=== PATIENT | female | born 1965 | race Caucasian/White ===

== ENCOUNTER 2020-11-12 09:15 | Outpatient (CLI) | payer OTHER, SELFPAY ==
--- NOTE | ~2020-11-12 | XR_ITS ---
EXAMINATION:XR_CERV2-3V_CR, XR lumbar spine 2-3V, XR thoracic spine 2V DATE: 11/12/2020 10:01 INDICATION: Scoliosis with chronic spine pain. TECHNIQUE: 1. AP, lateral, lateral swimmers and odontoid views of the cervical spine are provided. 2. AP, lateral and lateral swimmer's views of the thoracic spine were obtained. 3. AP, lateral and coned-down lumbosacral views of the lumbar spine were obtained. COMPARISON: None FINDINGS: Cervical spine: Alignment is normal. Odontoid is intact. Normal atlantoaxial interval. Vertebral body heights are no rmal. Disc spaces are normal. Multilevel mild bilateral cervical uncovertebral osteoarthritis. There is also mild to moderate multilevel bilateral cervical facet osteoarthritis most prominent on the rig ht at C4-C5 and C5-C6 and on the left at C6-C7. Prevertebral soft tissues are normal. Thoracic spine: Mild thoracic kyphosis with chronic appearing minimal anterior wedging of T4-T8. Moderate disc height loss at T1-T2 through T8-T9 with mild disc height loss in the more caudal thoracic spine. Visualized portion of the lungs are clear. No pleural effusion or pneumothorax. Cardiomediastinal silhouette is normal. Lumbar spine: 12 degrees lumbar dextro scoliosis between L1 and L4. Sagittal alignment is normal. Vertebral body he ights are normal. Moderate to severe disc height loss at L3-L4. Moderate left-sided predominant disc height loss at L2-L3 and moderate right-sided predominant disc height loss at L4-L5. Mild disc height loss at L1-L2 and L5-S1. Sacral arches appear intact. Mild bilateral sacroiliac osteoarthritis. Mild to moderate lower lumbar predominant facet osteoarthritis. IMPRESSION: 1. 12 degree lumbar dextroscoliosis. 2. Mild cervical, moderate thoracic and moderate to severe lumbar spondylosis. Reviewed, dictated and finalized at location B. IMPRESSION: 1. 12 degree lumbar dextroscoliosis. 2. Mild cervical, moderate thoracic and moderate to severe lumbar spondylosis. IMPRESSION: 1. 12 degree lumbar dextroscoliosis. 2. Mild cervical, moderate thoracic and moderate to severe lumbar spondylosis.
[2020-11-12 09:28] LABS: Hematocrit 47.7 % (35.0-49.0); Hemoglobin 15.4 g/dL (12.0-15.0); Mean Corpuscular HGB Conc 32.3 g/dL (32.0-36.0); Mean Corpuscular Volume 92.8 fL (78.0-102.0); Mean Platelet Volume 9.4 fl (9.2-11.8); Platelet Count Result 314 K/mm3 (150-420); Red Blood Count 5.14 M/mm3 (4.20-5.40); Red Cell Distribution Width 12.2 % (11.6-14.4); White Blood Count 5.8 K/mm3 (4.8-10.8)
[2020-11-12 10:47] LABS: Alanine Aminotransferase 22 U/L (14-59); Alkaline Phosphatase 90 U/L (46-116); Anion Gap 7 mmol/L (8-16); Aspartate Amino Transferase 17 U/L (15-37); Bilirubin,Total 0.4 mg/dL (0.00-1.00); Blood Urea Nitrogen 11 mg/dL (7-18); Calcium 9.6 mg/dL (8.5-10.1); Carbon Dioxide 30 mmol/L (21-32); Chloride 101 mmol/L (98-108); Cholesterol 168 mg/dL (0-200); Estimated Glomerular Filt Rate > 60; Glucose 81 mg/dL (70-99); HDL Direct 58 mg/dL (40-60); LDL Cholesterol Calculated 95 mg/dL (<130); Osmolality Calculated 284 mOsm/kg (285-295); Potassium 4.6 mmol/L (3.5-5.1); Sodium 138 mmol/L (136-145); Total Protein 7.4 g/dL (6.4-8.2); Triglycerides 76 mg/dL (0-150)
== END 2020-11-12 09:16 | disposition home or self-care (01) ==
PROVIDERS: PCP Family Medicine; Visit Provider Family Medicine
DX: G95.9 Disease of spinal cord, unspecified (principal); M41.9 Scoliosis, unspecified; J44.9 Chronic obstructive pulmonary disease, unspecified
CPT/HCPCS: 36415; 72040; 72070; 72100; 80053; 80061; 85027

== ENCOUNTER 2020-11-29 08:59 | Outpatient (CLI) | payer OTHER, SELFPAY | END 2020-11-29 09:00 | disposition home or self-care (01) | LOC: CHSCARD 09:00 | PROVIDERS: PCP Family Medicine; Visit Provider Family Medicine | DX: J44.9 Chronic obstructive pulmonary disease, unspecified (principal) | CPT/HCPCS: 94060; 94726; 94729 ==

== ENCOUNTER 2020-11-29 14:52 | Outpatient (RCR) | payer OTHER, SELFPAY ==
--- NOTE | 2020-11-29 15:45 | PTOPEVAL ---
Thank you for referring Patricia Bella to [facility] [place].? The patient is scheduled to be seen for therapy? _3___x/week for 12 visits. Please review, sign, date and return this plan of care COURTNEY. I agree with and certify that the following plan of care is medically necessary. Referring Physician Date Admitting Provider: Attending Provider: Alli Maki DO Referring Provider: *PT Outpatient Evaluation Start: 11/29/20 15:10 Freq: Status: Active Protocol: Document 11/29/20 15:12 SACHIN (Rec: 11/29/20 15:44 SACHIN [id number]) Therapy Assessment Status Assessment Status Assessment Status Evaluation Evaluation Information Problem Diagnosis back pain Onset 11/12/20 Subjective Information Pt. reports progressively Query Text:As Reported By Patient/ worsening back pain over the Family past year. She states that her pain is radiating across the low back and goes into the hips. Pt. reports that pain can shoot into the buttock on occassion. She states that her pain is constant. She states that bending over will also increase her pain. She reports that pain keeps her up frequently through the night. She reports that her goal for therapy is to decrease her pain. Diagnostic Tests X-Rays For This Problem Yes Prior Level of Function Activity Level (Last 3 Months) Occupation unemployed Hand Dominance Right Activity of Daily Living Ability Independent Indoor/Home Mobility Independent Community Mobility Independent Stairs Ability Independent Functional Cognition (Planning, Shopping Independent , Taking Medications) Cooking Yes Cleaning Yes Laundry Yes Shopping Yes Driving No Pain Assessment Timing of Pain Assessment Timing of Pain Assessment Pre-Treatment Pain Scale Pain Scale Used Numeric (1 - 10) Self Report Pain Assessment Lower Back Reported Pain Level 8 Pain Description Shooting,Tightness Pain Frequency Chronic,Continuous Lowest Pain Intensity 6 Greatest Pain Intensity 10 Pain Aggravating Factors Bending,Lifting,Prolonged Position,Walking,Weight
--- NOTE | 2020-12-01 15:00 | WPDPFTINT ---
PFT Interpretation DOS: 11/29/2020 REQUESTING: Alli Maki DO REASON FOR TESTING: COPD PULMONARY FUNCTION TESTS Results are reliable and reproducible. Spirometry: FEV1 is 68% predicted, 1.57 L. FVC is 110% predicted. The FEV1/ FVC ratio was decreased 51% predicted. The FEF25%-75% is 27% predicted. There is no significant change with bronchodilator administration. Lung volumes: The total lung capacity is 133% consistent with mild hyperinflation. Residual volume is 177%, severe air trapping. RV/TLC is also increased 47%. Airway resistance is increased 279%. Diffusion: DLCO 53%, moderately decreased. Flow volume loop: There is scooping of the expiratory limb consistent with an obstructive defect. IMPRESSION: This study shows a moderate obstructive ventilatory defect which is severe in the smaller airways, no response to bronchodilator, mild hyperinflation and severe air trapping and a moderate diffusion impairment. This is consistent with COPD. Compared to prior study on 02/27/2018 the results are similar. FEV1 was 1.55 L, and now it is 1.57 L. the forced vital capacity was 3.27 L, now it is 3.08 L. total lung capacity also similar and the DLCO similar. Lack of response to bronchodilator should not preclude use if clinically indicated. Latasha Burdick MD
--- NOTE | 2020-12-01 15:12 | WPDPFTINT ---
PFT Procedure Performed PFT Procedure Performed Spirometry with Pre/Post Bronchodilator Plethysmography (Lung Vol) Diffusing Cap (DLCO) Flow Vol Loop
--- NOTE | 2021-02-21 14:52 | PCPTNOTE ---
Ms. Bella attended a total of 9 treatment sessions from 11/29/20 to 12/21/20. She has failed to return to the clinic and has not contacted the clinic regarding his status. She will be discharged from our care. Refer to last daily note for pt. discharge status. Marco A Vásquez, MPT
== END 2020-12-21 15:30 | disposition home or self-care (01) ==
LOC: CHSPT 14:52
PROVIDERS: PCP Family Medicine; Visit Provider Family Medicine
DX: M41.9 Scoliosis, unspecified (principal); G95.9 Disease of spinal cord, unspecified
CPT/HCPCS: 97014; 97110; 97161; G0283

== ENCOUNTER 2021-12-19 21:51 | Emergency (ER) | payer OTHER, SELFPAY ==
--- NOTE | ~2021-12-19 | CT_ITS ---
EXAMINATION: CT abdomen pelvis w con DATE: 12/19/2021 23:23 INDICATION: Abdominal pain with constipation and nausea TECHNIQUE: Computed tomography (CT) of the abdomen and pelvis was performed with 100 mL Omnipaque-350 intravenous contrast. Automated exposure control and iterative reconstruction technique were employe d. The dose-length product was 158.80 mGy-cm. COMPARISON: None FINDINGS: Moderate emphysema at the lung bases. Mild peripheral atelectasis in the bilateral lower lung zones. Heart size is normal. No pericardial or pleural effusion. Focal hepatic steatosis at the ligamentum t eres. Mild periportal edema. Spleen, gallbladder, pancreas, bilateral adrenal glands and kidneys are normal. No abnormal bowel wall thickening or obstruction. Decompressed bladder, anteverted uterus and bilateral adnexa are unremarkable. No free intraperitoneal gas or fluid. No pathologically enlarged abdominal or pelvic lymphadenopathy. Mild lumbar dextrocurvature with moderate to severe spondylosis. IMPRESSION: 1. Mild periportal edema which may be related to recent aggressive fluid resuscitation. No other acut e intra-abdominal/pelvic process. Reviewed, dictated and finalized at location A. IMPRESSION: 1. Mild periportal edema which may be related to recent aggressive fluid resusc itation. No other acute intra-abdominal/pelvic process.
--- NOTE | ~2021-12-19 | XR_ITS ---
EXAM: XR abdomen obstructive series HISTORY: bloating and constipation . COMPARISON: None available. FINDINGS: Suggestion of lung hyperinflation. Diffuse reticular pattern. Paucity of small bowel gas, normal large bowel gas pattern. No organomegaly. No abnormal abdominal calcification. Thoracolumbar s coliosis. IMPRESSION: Paucity of small bowel gas limits the ability to assess for obstruction or ileus. Normal large bowel gas pattern. Reviewed, dictated and finalized at location K. IMPRESSION: Paucity of small bowel gas limits the ability to assess for obstruc tion or ileus. Normal large bowel gas pattern.
[2021-12-19 22:10] VITALS: BP 111/73; PULSE 60; RESP 20; TEMP 36.3; O2SAT 100
--- NOTE | 2021-12-19 22:12 | ED.ABDPAIN ---
HPI - Abdominal Pain General Chief Complaint: Abdominal Pain Stated Complaint: AMB Time Seen by Provider: 12/19/21 22:13 History of Present Illness HPI narrative: 56-year-old female patient in is brought to the ER by EMS with complaints of abdominal bloating and pain for the last 3 hours. The patient states that she has been constipated for the last 3 days and has not been drinking enough liquids since she has been stressed about moving into new house. Patient states that she usually does not eat well is maintained a low weight. She has lost a few lb in the last couple of weeks because of Having been under stress of moving. She also states that generally she has very poor appetite and has very low oral intake of food. She is a smoker of half a pack of cigarettes a day. She denies any recreational drugs and or any alcohol. Patient denies any vomiting but is nauseated. Patient states that she is able to pass gas and has liquid stools when she strains for a bowel movement. Patient has had some urinary difficulty in that that she has not been going much in the last couple of days . Patient denies any fever or chills. Related Data Allergies Allergy/AdvReac Type Severity Reaction Status Date / Time No Known Allergies Allergy Verified 10/28/21 11:12 Review of Systems Review of Systems: All systems reviewed & are unremarkable except as noted in HPI and below Constitutional: Constitutional: Reports no additional constitutional complaints Eyes: Eyes: Reports no additional eye complaints ENT: Reports system reviewed and no additional complaints, except as documented Cardiovascular: Cardiovascular: Reports no additional cardiovascular complaints Respiratory: Respiratory: Reports no additional respiratory complaints Gastrointestinal: Gastrointestinal: Reports no additional gastrointestinal complaints, Reports bloating, Reports constipation and Reports nausea Genitourinary: Genitourinary: Reports no additional female genitourinary complaints Musculoskeletal: Musculoskeletal: Reports no additional musculoskeletal complaints Integumentary/Breasts: Skin/Breast: Reports system reviewed and no additional complaints, except as docu Neurologic: Reports system reviewed and no additional complaints, except as documented Psychiatric: Psychiatric: Reports no additional psychiatric complaints Endocrine: Endocrine: Reports no additional endocrine complaints Hematologic/Lymphatic: Hematologic/Lymphatic: Reports no additional hematologic/lymphatic complaints Allergic/Immunologic: Allergic/Immunologic: Reports no additional allergic/immunologic complaints PMFSH Past Medical History Medical History delivery delivered 1994 Cigarette nicotine dependence COPD (chronic obstructive pulmonary disease) Surgical History Surgical History History of ear surgery Age 7 Family History Family History Father , in 1999 Lung cancer Mother Lung cancer Social History Social History Smoking packs per day: 0.5 Smoking cigarettes per day: 10.0 Years smoked: 25 Smoking pack-years: 12.50 Smoking status: Current every day smoker Tobacco type: cigarettes Substance use: former Substance use type: crack/cocaine Last use: 2002 Additional living arrangements comments: . 4 adult children. Exam Const: General: healthy appearing, no acute distress and alert; No ill appearing Nutritional Appearance: thin Orientation/consciousness: patient oriented x3 HENMT: Head: normal to inspection Ears: external ears normal Face and sinus: sinuses nontender Mouth: Yes Normal oral and palatal mucosa present and Yes dry mucous membranes Throat: posterior oropharynx normal and uvula midline Eyes: Conj
[2021-12-19] MEDS: ONDANSETRON INJ 4 MG/2 ML VIAL IV PUSH (22:29)
[2021-12-19 22:31] LABS: Basophils Absolute Auto 0.04 K/mm3 (0.00-0.10); Basophils Percent Auto 0.7 % (0.0-1.0); Eosinophils Absolute Auto 0.06 K/mm3 (0.02-0.50); Eosinophils Percent Auto 1.1 % (1.0-6.0); Hemoglobin 14.1 g/dL (12.0-15.0); Immature Granulocyte Absolute 0.02 K/mm3 (0.00-0.00); Immature Granulocyte Percent A 0.4 % (0.0-0.0); Lymphocytes Absolute Auto 0.96 K/mm3 (1.10-4.50); Lymphocytes Percent Auto 17.9 % (18.0-42.0); Mean Corpuscular HGB Conc 32.8 g/dL (32.0-36.0); Mean Corpuscular Hemoglobin 30.7 pg (27.0-31.0); Mean Corpuscular Volume 93.5 fL (78.0-102.0); Mean Platelet Volume 9.7 fl (9.2-11.8); Monocytes Absolute Auto 0.23 K/mm3 (0.10-0.90); Monocytes Percent Auto 4.3 % (2.0-11.0); Neutrophils Percent Auto 75.6 % (50.0-70.0); Platelet Count Result 249 K/mm3 (150-420); Red Cell Distribution Width 12.9 % (11.6-14.4); White Blood Count 5.4 K/mm3 (4.8-10.8)
[2021-12-19 22:46] LABS: Alanine Aminotransferase 7 U/L (14-59); Albumin Level 3.7 g/dL (3.4-5.0); Alkaline Phosphatase 74 U/L (46-116); Anion Gap 10 mmol/L (8-16); Aspartate Amino Transferase 16 U/L (15-37); Bilirubin,Total 0.5 mg/dL (0.00-1.00); Blood Urea Nitrogen 9 mg/dL (7-18); Calcium 9.2 mg/dL (8.5-10.1); Carbon Dioxide 27 mmol/L (21-32); Chloride 104 mmol/L (98-108); Estimated CRCL calculation 52 ml/min; Estimated Glomerular Filt Rate > 60; Glucose 125 mg/dL (70-99); Lipase 43 U/L (73-393); Osmolality Calculated 291 mOsm/kg (285-295); Potassium 4.4 mmol/L (3.5-5.1); Sodium 141 mmol/L (136-145)
[2021-12-19 22:51] VITALS: BP 112/78; PULSE 55; RESP 18; O2SAT 96
[2021-12-19 22:53] LABS: Add Urine Microscopic? YES; Appearance Urine Clear (Clear); Bilirubin Urine Negative (Negative); Blood Urine Negative (Negative); Color Urine Yellow (Yellow); Glucose Urine UA Negative (Negative); Ketones Urine 3+ (Negative); Leukocyte Esterase Ur 1+ (Negative); Nitrate Urine Negative (Negative); Protein Urine 1+ (Negative); Specific Grav Ur 1.025 (1.010-1.020); Urobilinogen Urine 0.2 mg/dL (0.2-1.0); pH Urine 6.5 (5.0-8.0)
[2021-12-19 23:01] LABS: Amorphous Sediment Urine Few; Bacteria Urine 1+ /hpf; Mucus Urine Few /lpf; RBC Urine 0-2 /hpf (0-2); Squamous Epithelial Cell Urine Few /hpf (Few)
[2021-12-19] MEDS: METOCLOPRAMIDE HCL INJ 10 MG/2 ML VIAL IV PUSH (23:09)
[2021-12-19] MEDS: SODIUM CHLORIDE 0.9% IV 1,000 ML 999 ML IV CONT (23:21)
[2021-12-20 00:24] VITALS: BP 110/71; PULSE 70; RESP 20; TEMP 36.6; O2SAT 96
== END 2021-12-20 00:35 | disposition home or self-care (01) ==
PROVIDERS: Emergency Provider Emergency Medicine; PCP Family Medicine
DX: R11.0 Nausea (principal); R10.9 Unspecified abdominal pain
CPT/HCPCS: 36415; 74019; 74177; 80053; 81001; 83690; 85025; 96361; 96374; 96375; 99284; J2405; J2765; J7030; Q9967

== ENCOUNTER 2022-08-24 08:53 | Outpatient (CLI) | payer OTHER, SELFPAY ==
--- NOTE | ~2022-08-24 | XR_ITS ---
XR chest 2V DATE: 08/24/2022 09:21 INDICATION: Chronic obstructive pulmonary disease TECHNIQUE: 2 views COMPARISON: 03/09/2008 two-view chest 12/19/2021 CT abdomen pelvis FINDINGS: There is very prominent bilateral hyperinflation with increased retrosternal airspace lambert ening the diaphragm, consistent with COPD. Azygos lobe is suspected. No pulmonary infiltrate or consolidation or pulmonary mass lesion is evident. Normal heart size. No hilar or mediastinal enlargement. No pleural effusion or pulmonary vascular con gestion or pneumothorax. IMPRESSION: Prominent emphysema Reviewed, dictated and finalized at location L. 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
[2022-08-24 09:08] LABS: Hematocrit 46.1 % (35.0-49.0); Hemoglobin 15.2 g/dL (12.0-15.0); Mean Corpuscular Hemoglobin 30.5 pg (27.0-31.0); Mean Corpuscular Volume 92.6 fL (78.0-102.0); Mean Platelet Volume 9.5 fl (9.2-11.8); Platelet Count Result 352 K/mm3 (150-420); Red Blood Count 4.98 M/mm3 (4.20-5.40); Red Cell Distribution Width 11.9 % (11.6-14.4); White Blood Count 11.7 K/mm3 (4.8-10.8)
[2022-08-24 09:37] LABS: Alanine Aminotransferase 18 U/L (14-59); Albumin Level 3.6 g/dL (3.4-5.0); Alkaline Phosphatase 89 U/L (46-116); Anion Gap 8 mmol/L (8-16); Aspartate Amino Transferase 13 U/L (15-37); Bilirubin,Total 0.3 mg/dL (0.00-1.00); Blood Urea Nitrogen 19 mg/dL (7-18); Calcium 9.8 mg/dL (8.5-10.1); Carbon Dioxide 32 mmol/L (21-32); Chloride 99 mmol/L (98-108); Estimated Glomerular Filt Rate > 60; Glucose 120 mg/dL (70-99); Osmolality Calculated 291 mOsm/kg (285-295); Potassium 5.2 mmol/L (3.5-5.1); Sodium 139 mmol/L (136-145); Total Protein 7.4 g/dL (6.4-8.2)
== END 2022-08-24 08:54 | disposition home or self-care (01) ==
LOC: CHSLAB 08:54
PROVIDERS: PCP Family Medicine; Visit Provider Family Medicine
DX: J43.9 Emphysema, unspecified (principal)
CPT/HCPCS: 36415; 71046; 80053; 85027

== ENCOUNTER 2022-10-31 11:49 | Outpatient (CLI) | payer OTHER, SELFPAY ==
[2022-10-31 12:35] LABS: Influenza A QL RT-PCR Negative (Negative); Influenza B QL RT-PCR Negative (Negative); SARS-CoV-2 RNA PCR Positive (Negative)
== END 2022-10-31 11:50 | disposition home or self-care (01) ==
LOC: CHSLAB 11:50
PROVIDERS: PCP Family Medicine; Visit Provider Family Medicine
DX: U07.1 COVID-19 (principal)
CPT/HCPCS: 87636

== ENCOUNTER 2023-03-26 10:10 | Emergency (ER) | payer OTHER, SELFPAY ==
[2023-03-26 10:10] VITALS: BP 127/88; PULSE 62; RESP 20; TEMP 36.1; O2SAT 96
[2023-03-26] MEDS: ONDANSETRON HCL ODT 4 MG TABLET 8 MG PO (10:42)
[2023-03-26] MEDS: KETOROLAC (*BKC) 60 MG/2 ML VIAL 30 MG IM (10:45)
[2023-03-26 10:48] LABS: Appearance Urine Clear (Clear); Bilirubin Urine Negative (Negative); Blood Urine Negative (Negative); Color Urine Yellow (Yellow); Glucose Urine UA Negative (Negative); Ketones Urine Negative (Negative); Leukocyte Esterase Ur Trace LEU/UL (Negative); Nitrate Urine Negative (Negative); Protein Urine Negative (Negative); Specific Grav Ur >= 1.030 (1.010-1.020); Urobilinogen Urine 0.2 mg/dL (0.2-1.0)
[2023-03-26 10:50] LABS: Basophils Absolute Auto 0.05 K/mm3 (0.00-0.10); Basophils Percent Auto 0.5 % (0.0-1.0); Eosinophils Absolute Auto 0.02 K/mm3 (0.02-0.50); Eosinophils Percent Auto 0.2 % (1.0-6.0); Hematocrit 46.8 % (35.0-49.0); Hemoglobin 15.8 g/dL (12.0-15.0); Immature Granulocyte Absolute 0.05 K/mm3 (0.00-0.00); Immature Granulocyte Percent A 0.5 % (0.0-0.0); Lymphocytes Absolute Auto 1.26 K/mm3 (1.10-4.50); Lymphocytes Percent Auto 13.3 % (18.0-42.0); Mean Corpuscular HGB Conc 33.8 g/dL (32.0-36.0); Mean Corpuscular Hemoglobin 31.3 pg (27.0-31.0); Mean Corpuscular Volume 92.9 fL (78.0-102.0); Mean Platelet Volume 9.7 fl (9.2-11.8); Monocytes Absolute Auto 0.45 K/mm3 (0.10-0.90); Monocytes Percent Auto 4.7 % (2.0-11.0); Neutrophils Absolute Auto 7.7 K/mm3 (1.7-7.2); Neutrophils Percent Auto 80.8 % (50.0-70.0); Platelet Count Result 276 K/mm3 (150-420); Red Blood Count 5.04 M/mm3 (4.20-5.40); Red Cell Distribution Width 12.7 % (11.6-14.4); White Blood Count 9.5 K/mm3 (4.8-10.8)
--- NOTE | 2023-03-26 10:58 | ED.GENADULT ---
HPI - General Adult General Chief complaint: Abdominal Pain Stated complaint: abdominal pain; nausea Time Seen by Provider: 03/26/23 10:17 History of Present Illness HPI narrative: 57yo woman under stress as her mother in the past week, presents with multiple symptoms of dehydration, nausea, back pain, suprapubic pain, and feeling like she has to have a bowel movement but cannot. Symptoms for the past 2-3 days. No fever. Related Data Allergies Allergy/AdvReac Type Severity Reaction Status Date / Time No Known Allergies Allergy Verified 03/26/23 10:17 Review of Systems Review of Systems: All systems reviewed & are unremarkable except as noted in HPI and below Constitutional: Constitutional: Reports chills and Denies fever(s) ENT: Denies dysphagia Cardiovascular: Cardiovascular: Denies chest pain Respiratory: Respiratory: Denies dyspnea [facility] Past Medical History Medical History delivery delivered 1994 Cigarette nicotine dependence COPD (chronic obstructive pulmonary disease) Surgical History Surgical History History of ear surgery Age 7 Family History Family History Father , in 1999 Lung cancer Mother Lung cancer Social History Social History Smoking packs per day: 0.5 Smoking cigarettes per day: 10.0 Years smoked: 25 Smoking pack-years: 12.50 Smoking status: Current every day smoker Tobacco type: cigarettes Substance use: former Substance use type: crack/cocaine Last use: 2002 Lack of Transportation: YES Lack of Food: Sometimes True Current Housing: I Have Housing Concerned About Future Housing: No Difficulty Paying Gas/Electric Bills: YES Difficulty Paying for Meds: No Currently Unemployed: No Education: High School Diploma/GED Difficulty w/ Childcare or Family Care: No Living arrangements: with family Additional living arrangements comments: . 4 adult children. Exam Const: General: healthy appearing Nutritional Appearance: thin Eyes: Conjunctivae: conjunctivae normal Resp: Effort & Inspection: normal respiratory effort and not labored Cardio: Rate: regular rate GI: Inspection: non-distended GI Palp: Yes Soft to palpation and No Tenderness to palpation present (GI) Skin: General skin exam: normal color, no jaundice and no pallor Extrem: General: no clubbing, cyanosis or edema Course Vital Signs Vital signs: Vital Signs Temperature 36.1 C L 03/26/23 10:10 Pulse Rate 62 03/26/23 10:10 Respiratory Rate 20 03/26/23 10:10 Blood Pressure 127/88 03/26/23 10:10 Pulse Oximetry 96 03/26/23 10:10 Oxygen Delivery Room Air 03/26/23 10:10 Temperature 36.1 C L 03/26/23 10:10 Pulse Rate 62 03/26/23 10:10 Respiratory Rate 20 03/26/23 10:10 Blood Pressure 127/88 03/26/23 10:10 Pulse Oximetry 96 03/26/23 10:10 Oxygen Delivery Room Air 03/26/23 10:15 Medical Decision Making MDM Narrative Medical decision making narrative: nausea, chills, suprapubic pain DDx cystitis, dehydration, diverticulitis, colitis, IBS, indigestion Vital Signs Vital Signs: Vital Signs Temperature 36.1 C L 03/26/23 10:10 Pulse Rate 62 03/26/23 10:10 Respiratory Rate 03/26/23 10:10 Blood Pressure 127/88 03/26/23 10:10 Pulse Oximetry 96 03/26/23 10:10 Oxygen Delivery Room Air 03/26/23 10:10 Temperature 36.1 C L 03/26/23 10:10 Pulse Rate 62 03/26/23 10:10 Respiratory Rate 20 03/26/23 10:10 Blood Pressure 127/88 03/26/23 10:10 Pulse Oximetry 96 03/26/23 10:10 Oxygen Delivery Room Air 03/26/23 10:15 Lab Data 03/26/23 10:37 03/26/23 10:37 Labs: Lab Results 03/26/23
[2023-03-26 11:00] LABS: Add Urine Microscopic? YES; Bacteria Urine Trace /hpf; RBC Urine None seen /hpf (0-2); Squamous Epithelial Cell Urine Few /hpf (Few); WBC Urine 0-3 /hpf (0-3)
[2023-03-26 11:10] LABS: Alanine Aminotransferase 15 U/L (14-59); Alkaline Phosphatase 77 U/L (46-116); Anion Gap 12 mmol/L (8-16); Aspartate Amino Transferase 17 U/L (15-37); Bilirubin,Total 0.4 mg/dL (0.00-1.00); Blood Urea Nitrogen 15 mg/dL (7-18); Calcium 9.4 mg/dL (8.5-10.1); Carbon Dioxide 26 mmol/L (21-32); Chloride 102 mmol/L (98-108); Estimated CRCL calculation 41 ml/min; Estimated Glomerular Filt Rate > 60; Glucose 129 mg/dL (70-99); Osmolality Calculated 292 mOsm/kg (285-295); Potassium 4.2 mmol/L (3.5-5.1); Sodium 140 mmol/L (136-145); Total Protein 7.4 g/dL (6.4-8.2)
[2023-03-26 11:13] LABS: Lactic Acid Reflex 1.5 mmol/L (0.4-2.0)
[2023-03-26 11:14] LABS: Lipase 33 U/L (16-77)
[2023-03-26] MEDS: SODIUM CHLORIDE 0.9% IV 1,000 ML 999 ML IV CONT (12:02)
[2023-03-26 13:20] VITALS: BP 121/79; PULSE 63; RESP 16; O2SAT 98
--- NOTE | 2023-03-26 13:30 | PC.NURSE ---
PT REPORTS SHE IS FEELING A LITTLE BETTER, WHEN SIG OTHER ARRIVES HER SX SEEM TO BE EXAGGERATED. PT IS AMBULATORY OUT OF ED WITHOUT DISTRESS.
== END 2023-03-26 13:20 | disposition home or self-care (01) ==
PROVIDERS: Emergency Provider Emergency Medicine; PCP Family Medicine
DX: E86.0 Dehydration (principal); F43.29 Adjustment disorder with other symptoms; J44.9 Chronic obstructive pulmonary disease, unspecified; F17.210 Nicotine dependence, cigarettes, uncomplicated; Z79.51 Long term (current) use of inhaled steroids
CPT/HCPCS: 36415; 80053; 81001; 83605; 83690; 85025; 96360; 96372; 99283; A9270; J1885; J7030

== ENCOUNTER 2023-08-27 09:55 | Emergency (ER) | payer SELFPAY ==
[2023-08-27] VITALS (21 sets, daily range): BP systolic 98–145; BP diastolic 76–102; PULSE 72–139; RESP 10–35; TEMP 37.2; O2SAT 92–100
--- NOTE | ~2023-08-27 | XR_ITS ---
XR chest 1V portable 08/27/2023 10:13 Indication: Shortness of breath and cough. Emphysema. Procedure: AP portable chest Comparison: Comparison to multiple prior studies sequentially, with oldest reviewed study dated 11/2007. Findings: Heart size normal. The lungs are hyperinflated which is consistent with, but not diagnostic of chronic obstructive pulmonary disease. There is scarring in the right upper lobe. No focal air sp león disease, pulmonary edema, pleural effusion or suspected pneumothorax. Impression: 1: No acute cardiopulmonary disease. Reviewed, dictated and finalized at location B. [employer] ENGINE PRODUCTION Impression: 1: No acute cardiopulmonary disease.
--- NOTE | 2023-08-27 10:02 | ECG_ITS ---
Measurements Intervals Tibbie Rate: 75 P: 81 VT: 131 QRS: 90 QRSD: 80 T: 78 QT: 347 QTc: 388 Interpretive Statements SINUS RHYTHM WITH SINUS ARRHYTHMIA BORDERLINE R WAVE PROGRESSION, ANTERIOR LEADS BASELINE ARTIFACT- I, II, III, AVR, AVL, AVF, V1-V2, V4 BORDERLINE ECG NO PREVIOUS ECG AVAILABLE FOR COMPARISON Electronically Signed On 08-27-2023 14:47:08 TOOL PROGRAMMER by Bentley Burgos D.O.
--- NOTE | 2023-08-27 10:13 | ED.SOB ---
HPI - SOB/Dyspnea General Chief Complaint: Shortness of Breath/Dyspnea Stated Complaint: shortness of breath Source: patient Mode of arrival: ambulatory Limitations: no limitations History of Present Illness HPI Narrative: 57 year old female presents to the Emergency Department complaining of shortness of breath, COPD. Patients states onset several days ago. States coughing yellow phlegm. Denies chest pains, fever, nausea, vomiting, diarrhea. No known exposure. History of COPD. Is NOT on home O2 or nebulizer treatments. Continues to smoke. MD elicited complaint: shortness of breath Pertinent past history: COPD Onset (ago): day(s) (several) Timing: constant Severity: moderate Exacerbating factors: nothing Relieving factors: nothing Known history of: COPD Associated symptoms: cough and sputum production Treatment prior to arrival: none Related Data Home oxygen amount: none Allergies Allergy/AdvReac Type Severity Reaction Status Date / Time No Known Allergies Allergy Verified 08/27/23 10:01 Review of Systems Review of Systems: All systems reviewed & are unremarkable except as noted in HPI and below Constitutional: Constitutional: Reports as per HPI, Denies chills and Denies fever(s) Eyes: Eyes: Reports as per HPI ENT: Reports system reviewed and no additional complaints, except as documented, Denies nasal congestion and Denies sore throat Cardiovascular: Cardiovascular: Reports as per HPI and Denies chest pain Respiratory: Respiratory: Reports as per HPI, Reports cough and Reports dyspnea Gastrointestinal: Gastrointestinal: Reports as per HPI, Denies diarrhea, Denies nausea and Denies vomiting Genitourinary: Genitourinary: Reports no additional female genitourinary complaints Musculoskeletal: Musculoskeletal: Reports no additional musculoskeletal complaints Integumentary/Breasts: Skin/Breast: Reports system reviewed and no additional complaints, except as docu Neurologic: Reports system reviewed and no additional complaints, except as documented Psychiatric: Psychiatric: Reports no additional psychiatric complaints Endocrine: Endocrine: Reports no additional endocrine complaints Hematologic/Lymphatic: Hematologic/Lymphatic: Reports no additional hematologic/lymphatic complaints Allergic/Immunologic: Allergic/Immunologic: Reports no additional allergic/immunologic complaints PMFSH Past Medical History Medical History delivery delivered 1994 Cigarette nicotine dependence COPD (chronic obstructive pulmonary disease) Surgical History Surgical History History of ear surgery Age 7 Family History Family History Father , in 1999 Lung cancer Mother Lung cancer Social History Social History Smoking packs per day: 0.5 Smoking cigarettes per day: 10.0 Years smoked: 25 Smoking pack-years: 12.50 Smoking status: Current every day smoker Tobacco type: cigarettes Substance use: former Substance use type: crack/cocaine Last use: 2002 Lack of Transportation: YES Lack of Food: Sometimes True Current Housing: I Have Housing Concerned About Future Housing: No Difficulty Paying Gas/Electric Bills: YES Difficulty Paying for Meds: No Currently Unemployed: No Education: High School Diploma/GED Difficulty w/ Childcare or Family Care: No Living arrangements: with family Additional living arrangements comments: . 4 adult children. Exam Const: General: ill appearing (mild tachypnea, thin, barrel chest) Nutritional Appearance: thin Orientation/consciousness: patient oriented x3 Limitations: no limitations HENMT: Head: normal to inspection Ears: external ears normal Face/Nose/Sinus: Normal external nose present Face a
[2023-08-27] MEDS: IPRATROPIUM 0.5 MG/ALBUTEROL SULFATE 2.5 MG AMPUL.NEB 3 ML INHALATION (10:16)
[2023-08-27] MEDS: methylPREDNISolone SOD SUCC 125 MG VIAL IV PUSH (10:23)
[2023-08-27 10:27] LABS: Basophils Absolute Auto 0.06 K/mm3 (0.00-0.10); Basophils Percent Auto 0.5 % (0.0-1.0); Eosinophils Absolute Auto 0.02 K/mm3 (0.02-0.50); Eosinophils Percent Auto 0.2 % (1.0-6.0); Hemoglobin 16.8 g/dL (12.0-15.0); Immature Granulocyte Absolute 0.07 K/mm3 (0.00-0.00); Immature Granulocyte Percent A 0.5 % (0.0-0.0); Lymphocytes Absolute Auto 1.55 K/mm3 (1.10-4.50); Lymphocytes Percent Auto 11.7 % (18.0-42.0); Mean Corpuscular HGB Conc 32.9 g/dL (32.0-36.0); Mean Corpuscular Hemoglobin 29.7 pg (27.0-31.0); Mean Corpuscular Volume 90.1 fL (78.0-102.0); Mean Platelet Volume 9.5 fl (9.2-11.8); Monocytes Absolute Auto 0.75 K/mm3 (0.10-0.90); Monocytes Percent Auto 5.6 % (2.0-11.0); Neutrophils Absolute Auto 10.8 K/mm3 (1.7-7.2); Neutrophils Percent Auto 81.5 % (50.0-70.0); Platelet Count Result 286 K/mm3 (150-420); Red Blood Count 5.66 M/mm3 (4.20-5.40); Red Cell Distribution Width 12.3 % (11.6-14.4); White Blood Count 13.3 K/mm3 (4.8-10.8)
[2023-08-27 10:44] LABS: D Dimer 0.19 mg/L (0.19-0.50)
[2023-08-27 10:50] LABS: Alanine Aminotransferase 17 U/L (14-59); Albumin Level 3.6 g/dL (3.4-5.0); Alkaline Phosphatase 106 U/L (46-116); Anion Gap 10 mmol/L (8-16); Aspartate Amino Transferase 13 U/L (15-37); Bilirubin,Total 0.6 mg/dL (0.00-1.00); Blood Urea Nitrogen 14 mg/dL (7-18); Calcium 9.7 mg/dL (8.5-10.1); Carbon Dioxide 30 mmol/L (21-32); Chloride 95 mmol/L (98-108); Estimated CRCL calculation 43 ml/min; Estimated Glomerular Filt Rate > 60; Glucose 112 mg/dL (70-99); Osmolality Calculated 281 mOsm/kg (285-295); Potassium 4.6 mmol/L (3.5-5.1); Sodium 135 mmol/L (136-145); Total Protein 8.4 g/dL (6.4-8.2); Troponin I 5.6 ng/L (0.00-60.4)
[2023-08-27 10:56] LABS: Influenza A QL RT-PCR Negative (Negative); Influenza B QL RT-PCR Negative (Negative); RSV RNA, RT-PCR Negative (Negative); SARS-CoV-2 RNA PCR Negative (Negative)
[2023-08-27] MEDS: ALBUTEROL SULFATE NEB 2.5 MG/3 ML INH INHALATION (11:13)
--- NOTE | 2023-08-27 11:45 | PC.NURSE ---
PT REPORTS SHE IS FEELING A LITTLE BETTER. PT HAS BEEN ABLE TO COUGH UP GREENISH PHLEM POST NEB TREATMENTS. NAD NOTED. PT TO BE DC HOME.
== END 2023-08-27 11:55 | disposition home or self-care (01) ==
PROVIDERS: Emergency Provider Emergency Medicine; PCP Family Medicine
DX: J44.9 Chronic obstructive pulmonary disease, unspecified (principal); J20.9 Acute bronchitis, unspecified; F17.210 Nicotine dependence, cigarettes, uncomplicated; Z20.822 Contact with and (suspected) exposure to COVID-19
CPT/HCPCS: 36415; 71045; 80053; 84484; 85025; 85380; 87637; 93005; 94640; 96374; 99284; J2930

== ENCOUNTER 2024-02-08 11:22 | Outpatient (CLI) | payer OTHER, SELFPAY ==
[2024-02-08 11:50] LABS: Basophils Absolute Auto 0.06 K/mm3 (0.00-0.10); Basophils Percent Auto 0.7 % (0.0-1.0); Eosinophils Absolute Auto 0.02 K/mm3 (0.02-0.50); Eosinophils Percent Auto 0.2 % (1.0-6.0); Hematocrit 53.5 % (35.0-49.0); Immature Granulocyte Absolute 0.03 K/mm3 (0.00-0.00); Immature Granulocyte Percent A 0.3 % (0.0-0.0); Lymphocytes Absolute Auto 2.05 K/mm3 (1.10-4.50); Lymphocytes Percent Auto 23.3 % (18.0-42.0); Mean Corpuscular HGB Conc 33.6 g/dL (32-36); Mean Corpuscular Hemoglobin 30.7 pg (27.0-31.0); Mean Corpuscular Volume 91.3 fL (78.0-102.0); Mean Platelet Volume 9.6 fl (9.2-11.8); Monocytes Absolute Auto 0.47 K/mm3 (0.10-0.90); Monocytes Percent Auto 5.3 % (2.0-11.0); Neutrophils Absolute Auto 6.18 K/mm3 (1.70-7.20); Neutrophils Percent Auto 70.2 % (50.0-70.0); Platelet Count Result 285 K/mm3 (150-420); Red Blood Count 5.86 M/mm3 (4.20-5.40); White Blood Count 8.8 K/mm3 (4.8-10.8)
[2024-02-08 12:51] LABS: Alanine Aminotransferase 23 U/L (14-59); Albumin Level 4.4 g/dL (3.4-5.0); Alkaline Phosphatase 86 U/L (46-116); Anion Gap 11 mmol/L (4-12); Aspartate Amino Transferase 22 U/L (15-37); Bilirubin,Total 0.7 mg/dL (0.00-1.00); Blood Urea Nitrogen 15 mg/dL (7-18); Calcium 10.6 mg/dL (8.5-10.1); Carbon Dioxide 28 mmol/L (21-32); Chloride 101 mmol/L (98-108); Estimated Glomerular Filt Rate > 60; Folic Acid 11.8 ng/mL (8.6->20); Glucose 138 mg/dL (70-99); Osmolality Calculated 292 mOsm/kg (285-295); Potassium 4.8 mmol/L (3.5-5.1); Sodium 140 mmol/L (136-145); Total Protein 7.7 g/dL (6.4-8.2); Vitamin B12 1252 pg/mL (193-986)
[2024-02-12 12:33] LABS: Prealbumin 23 mg/dL (17-34)
== END 2024-02-08 11:23 | disposition home or self-care (01) ==
LOC: CHSLAB 11:24
PROVIDERS: PCP Family Medicine; Visit Provider Family Medicine
DX: E53.8 Deficiency of other specified B group vitamins (principal); E03.9 Hypothyroidism, unspecified; R63.4 Abnormal weight loss
CPT/HCPCS: 36415; 80053; 82607; 82746; 84134; 84443; 85025

== ENCOUNTER 2024-02-13 12:56 | Outpatient (CLI) | payer OTHER, SELFPAY ==
--- NOTE | 2024-03-05 21:47 | WPDPFTINT ---
PFT Procedure Performed PFT Procedure Performed Spirometry with Pre/Post Bronchodilator Plethysmography (Lung Vol) Diffusing Cap (DLCO) Flow Vol Loop PFT Interpretation DOS: 02/13/2024 REQUESTING: Dr Alli Maki REASON: COPD Results are reliable and reproducible. Repeatability of spirometry FEV1 maneuver pre and post bronchodilator is Grade A. Spirometry: Pre bronchodilator FEV1 is 1.20 L, 54%, reduced. Pre bronchodilator FVC is 2.97 L, 109%, normal. FEV1/FVC ratio is 41%. After bronchodilator, the FEV1 is unchanged, 1.17 L, 52%, -2%. After bronchodilator the FVC unchanged 2.89 L, 106%, -3%. The FEV1/ FVC ratio was 41%. Lung volumes: total lung capacity is 5.71 L, 132% predicted, consistent with mild hyperinflation. The residual volume is 2.74 L, 175% predicted, severe air trapping. RV/TLC is increased 48%. Airway resistance is increased. Diffusion capacity: DLCO is 5.8, 46%, moderately reduced. DLCO/VA is 1.27, 32%, severely reduced. Flow volume loop: Severe coving of the expiratory limb consistent with obstruction. IMPRESSION: This study shows a moderate obstructive ventilatory impairment without response to bronchodilator, mild hyperinflation with severe air trapping and severe diffusion impairment. This is similar to a study on 11/29/2020. Lack of response to bronchodilator should not preclude use if clinically indicated. Latasha Burdick MD
== END 2024-02-13 12:57 | disposition home or self-care (01) ==
LOC: CHSCARD 12:57
PROVIDERS: PCP Family Medicine; Visit Provider Family Medicine
DX: R63.4 Abnormal weight loss (principal); R94.2 Abnormal results of pulmonary function studies
CPT/HCPCS: 94060; 94726; 94729

== ENCOUNTER 2024-03-12 14:42 | Outpatient (CLI) | payer OTHER, SELFPAY ==
--- NOTE | ~2024-03-12 | MM_ITS ---
EXAMINATION: MM screening millie BI w gómez HISTORY: Screening TECHNIQUE: Craniocaudal and mediolateral oblique 3-D tomosynthesis images were obtained and synthetic 2-D images were generated. CAD analysis was submitted and interpreted. COMPARISON: No prior mammogram is available for comparison at this institution. BREAST PARENCHYMAL COMPOSITION: Dense: The breasts are extremely dense, which lowers the sensitivity of mammography. FINDINGS: There is no evidence of suspicious mass, calcification, or architectural distortion to sugg est malignancy in either breast. There has been no suspicious interval change. IMPRESSION: 1. No mammographic evidence of malignancy. 2. Recommend routine screening mammography in one year. BI-RADS Category 1: Negative Reviewed, dictated and finalized at location B.
== END 2024-03-12 14:43 | disposition home or self-care (01) ==
LOC: CHSIMG 14:43
PROVIDERS: PCP Family Medicine; Visit Provider Family Medicine
DX: Z12.31 Encounter for screening mammogram for malignant neoplasm of breast (principal)
CPT/HCPCS: 77063; 77067

== ENCOUNTER 2024-03-24 05:49 | Day surgery (SDC) | payer OTHER, SELFPAY ==
[2024-03-06 10:04] VITALS: BMI 13.3
[2024-03-12 11:33] VITALS: BMI 13.3
[2024-03-24 06:10] VITALS: BP 117/77; PULSE 78; RESP 14; TEMP 36.7; O2SAT 94
--- NOTE | 2024-03-24 06:40 | WPDANESEPPF ---
Anes - Initial Pre Proc Eval Procedure: Operation Date: 03/24/24 07:30 Proposed Procedures p Diagnostic Colonoscopy - Jim Sims DO Date/Time: 03/24/24 06:40 Surgeon: Jim Sims DO Pre Op Diagnosis: Positive Cologuard Patient Data Age: 58 Gender: F Height: 1.55 m Weight: 35.15 kg Last Vital Signs Temp 36.7 C 03/24/24 06:10 Pulse 78 03/24/24 06:10 Resp 14 03/24/24 06:10 BP 117/77 03/24/24 06:10 Pulse Ox 94 03/24/24 06:10 O2 Del Method Room Air 03/24/24 06:10 Allergies Allergy/AdvReac Type Severity Reaction Status Date / Time No Known Allergies Allergy Verified 03/24/24 06:06 Home Medications Medication Instructions Recorded Confirmed Type mirtazapine 15 mg tablet 15 mg PO DAILY #90 tabs 02/08/24 03/24/24 Rx varenicline 0.5 mg (11)-1 mg (42) See Rx Instructions PO PER PKG DIR 03/06/24 03/24/24 Rx tablets in a dose pack (Chantix #53 ea Starting Month Box) fluticasone fur. 200 mcg-umeclid 1 inh inhalation DAILY 03/12/24 03/24/24 History 62.5 mcg-vilant 25 mcg inhalat.powder (Trelegy Ellipta) Patient hx anesthesia problems: none Family hx anesthesia problems: none Results Review: All pre-operative results and documents have been reviewed as part of the pre-operative evaluation. ON LICENSE OF [facility] Past Medical History Medical History (Updated 02/26/24 @ 08:22 by Debra Araujo) delivery delivered 1994 Cigarette nicotine dependence COPD (chronic obstructive pulmonary disease) Positive colorectal cancer screening using Cologuard test Surgical History Surgical History History of ear surgery Age 7 Family History Family History Father , in 1999 Lung cancer Mother Lung cancer Social History Social History Smoking packs per day: 0.5 Smoking cigarettes per day: 10.0 Years smoked: 20 Smoking pack-years: 10.00 Smoking status: Current every day smoker Tobacco type: cigarettes Substance use: former Substance use type: does not use Last use: 2002 Lack of Transportation: YES Lack of Food: Sometimes True Current Housing: I Have Housing Concerned About Future Housing: No Difficulty Paying Gas/Electric Bills: YES Difficulty Paying for Meds: No Currently Unemployed: No Education: High School Diploma/GED Difficulty w/ Childcare or Family Care: No Living arrangements: with family Additional living arrangements comments: . 4 adult children. Spiritual care concerns: No Anes - Eval Final PreProcedure Day of Procedure 03/24/24 06:40 Patient weight: normal Heart: regular rate and rhythm Lungs: clear to auscultation and normal air movement Airway: Mallampati scale class II Neurological: alert and oriented Last oral intake: >/= 8 hours ASA classification: III Emergent: no Anesthetic plan: proceed Anesthesia type and monitoring: general GIVS and standard monitoring Results Review: All pre-operative results and documents have been reviewed as part of the pre-operative evaluation. Informed Consent: The patient's anesthetic plan and its attendant risks and benefits were discussed with the patient/family/POA. Questions were solicited and answers provided to the satisfaction of the patient/family/POA.
[2024-03-24] MEDS: LACTATED RINGERS 1,000 ML 150 ML IV CONT (06:53)
--- NOTE | 2024-03-24 07:25 | PM.IMHP ---
H&P: HPI History of Present Illness Date/Time: 03/24/24 07:25 Chief Complaint: + Cologuard Narrative: 58 yo woman presents for colonoscopy. She recently had a + cologuard test. She has also had weight loss recently. She has never had a colonoscopy before. Denies hematochezia/melena. No known fam hx colon cancer. Review of Systems Review of Systems: All systems reviewed & are unremarkable except as noted in HPI and below Constitutional: Constitutional: Denies chills, Denies fever(s), Denies headache(s) and Reports weight loss Eyes: Eyes: Denies change in vision ENT: Denies dizziness, Denies headache(s), Denies neck mass and Denies throat swelling Cardiovascular: Cardiovascular: Denies chest pain, Denies lightheadedness and Denies dyspnea Respiratory: Respiratory: Denies cough, Denies dyspnea and Denies wheezing Gastrointestinal: Gastrointestinal: Denies abdominal pain, Denies change in bowel habits, Denies nausea and Denies vomiting Genitourinary: Genitourinary: Denies hematuria and Denies dysuria Musculoskeletal: Musculoskeletal: Reports as per HPI Integumentary/Breasts: Skin/Breast: Reports as per HPI Neurologic: Denies dizziness and Denies headache(s) Allergic/Immunologic: Allergic/Immunologic: Denies throat swelling and Denies wheezing [facility] Past Medical History Medical History (Updated 02/26/24 @ 08:22 by Debra Araujo) delivery delivered 1994 Cigarette nicotine dependence COPD (chronic obstructive pulmonary disease) Positive colorectal cancer screening using Cologuard test Surgical History Surgical History History of ear surgery Age 7 Family History Family History Father , in 1999 Lung cancer Mother Lung cancer Social History Social History Smoking packs per day: 0.5 Smoking cigarettes per day: 10.0 Years smoked: 20 Smoking pack-years: 10.00 Smoking status: Current every day smoker Tobacco type: cigarettes Substance use: former Substance use type: does not use Last use: 2002 Lack of Transportation: YES Lack of Food: Sometimes True Current Housing: I Have Housing Concerned About Future Housing: No Difficulty Paying Gas/Electric Bills: YES Difficulty Paying for Meds: No Currently Unemployed: No Education: High School Diploma/GED Difficulty w/ Childcare or Family Care: No Living arrangements: with family Additional living arrangements comments: . 4 adult children. Spiritual care concerns: No Meds Home Medications and Allergies Home Medications Medication Instructions Recorded Confirmed Type mirtazapine 15 mg tablet 15 mg PO DAILY #90 tabs 02/08/24 03/24/24 Rx varenicline 0.5 mg (11)-1 mg (42) See Rx Instructions PO PER PKG DIR 03/06/24 03/24/24 Rx tablets in a dose pack ([employer] #53 ea Starting Month Box) fluticasone fur. 200 mcg-umeclid 1 inh inhalation DAILY 03/12/24 03/24/24 History 62.5 mcg-vilant 25 mcg inhalat.powder (Trelegy Ellipta) Allergies Allergy/AdvReac Type Severity Reaction Status Date / Time No Known Allergies Allergy Verified 03/24/24 06:06 Vital Signs Vital Signs - 24 hr 03/24/24 06:10 Temperature 36.7 C Pulse Rate 78 Respiratory Rate 14 Blood Pressure 117/77 Pulse Oximetry 94 Oxygen Delivery Room Air Exam Const: General: no acute distress and alert Orientation/consciousness: patient oriented x3 HENMT: Head: normocephalic and atraumatic Ears: hearing grossly normal bilaterally Face/Nose/Sinus: Normal nares present Mouth: Yes Normal oral and palatal mucosa present Eyes: Periorbital: periorbital findings normal Sclera: sclerae normal EOM: EOMs intact bilaterally Neck: Neck: normal visual inspection, no lymphadenopathy and trachea midline Chest: Chest palpation & ins
[2024-03-24 07:58] VITALS: BP 108/81; PULSE 83; RESP 14; O2SAT 97
[2024-03-24 08:08] VITALS: BP 123/93; RESP 20; O2SAT 98
[2024-03-24 08:16] VITALS: BP 108/76; RESP 20; O2SAT 99
--- NOTE | 2024-03-24 10:46 | WPDANESPN ---
Anes - Prog Note Post-Op Date/Time: 03/24/24 10:46 Cardiovascular status: normal Respiratory status: normal Airway patency: baseline Mental status: baseline Post-Op hydration status: normal Vital Signs: Last Vital Signs Temp 36.7 C 03/24/24 06:10 Pulse 83 03/24/24 07:58 Resp 20 03/24/24 08:16 BP 108/76 03/24/24 08:16 Pulse Ox 99 03/24/24 08:16 O2 Del Method Room Air 03/24/24 08:16 Pain Score (VAS): 0 I/O: Intake & Output 03/23/24 03/24/24 03/24/24 23:59 07:59 15:59 Intake Total 500 50 Balance 500 50 Post-procedural complaints: none Patient Feedback: Patient satisfied with anesthetic care. Other Findings: Patient vital signs back to baseline. Patient denies nausea and vomiting. Patient's pain under control. Patient OK for discharge.
== END 2024-03-24 08:25 | disposition home or self-care (01) ==
PROVIDERS: PCP Family Medicine; Visit Provider Surgery
PROC: 0DJD8ZZ Inspection of Lower Intestinal Tract, Via Natural or Artificial Opening Endoscopic (ICD-10-PCS; CPT 45378; principal; 2024-03-24 07:30)
DX: R19.5 Other fecal abnormalities (principal)
CPT/HCPCS: 45378

== ENCOUNTER 2025-05-02 10:48 | Emergency (ER) | payer OTHER, SELFPAY ==
[2025-05-02 10:50] VITALS: BP 136/92; PULSE 70; RESP 18; TEMP 36.8; O2SAT 96
--- NOTE | 2025-05-02 10:53 | ED_ITS ---
HPI - Nausea/Vomiting/Diarrhea General Chief complaint: Nausea/Vomiting/Diarrhea Stated complaint: shakes, doesn't feel well Time Seen by Provider: 05/02/25 10:53 Source: patient Mode of arrival: ambulatory Limitations: no limitations History of Present Illness HPI Narrative: this is a 59-year-old female with history of COPD and has been on Remeron for sleep but failed to keep appointment with her primary care physician and had run out of her Remeron and primary denied refills till she followed up. Otherwise some mild nausea currently there is no nausea or vomiting no abdominal pain no chest pain vitals are stable no neurological deficits no headache no blurry vision no palpitations no fever chills. MD elicited complaint: nausea Onset (ago): day(s) Related Data Allergies Allergy/AdvReac Type Severity Reaction Status Date / Time No Known Allergies Allergy Verified 05/02/25 10:57 Review of Systems Review of Systems: All systems reviewed & are unremarkable except as noted in HPI and below PMFSH Past Medical History Medical History Positive colorectal cancer screening using Cologuard test delivery delivered 1994 Cigarette nicotine dependence COPD (chronic obstructive pulmonary disease) Surgical History Surgical History History of ear surgery Age 7 Family History Family History Father , in 1999 Lung cancer Mother Lung cancer Social History Social History Smoking packs per day: 0.5 Smoking cigarettes per day: 10.0 Years smoked: 20 Smoking pack-years: 10.00 Smoking status: Current every day smoker Tobacco type: cigarettes Substance use: former Substance use type: does not use Last use: 2002 Lack of Transportation: YES Lack of Food: Sometimes True Current Housing: I Have Housing Concerned About Future Housing: No Difficulty Paying Gas/Electric Bills: YES Difficulty Paying for Meds: No Currently Unemployed: No Education: High School Diploma/GED Difficulty w/ Childcare or Family Care: No Living arrangements: with family Additional living arrangements comments: . 4 adult children. Spiritual care concerns: No Exam Const: General: healthy appearing and no acute distress Nutritional Appearance: well nourished Orientation/consciousness: patient oriented x3 Limitations: no limitations Eyes: Conjunctivae: conjunctivae normal Pupils: Equal, round and reactive pupils present Neck: Neck: normal visual inspection and no lymphadenopathy Chest: Chest palpation & inspection: normal inspection of the chest Resp: Effort & Inspection: normal respiratory effort Auscultation: clear to auscultation bilaterally Cardio: Rate: regular rate Rhythm: regular rhythm GI: GI Palp: Yes Soft to palpation Auscultation: normal bowel sounds Neuro: General: patient oriented x3, moves all extremities, no meningeal signs and no focal motor deficits Extrem: General: normal to inspection and no clubbing, cyanosis or edema Psych: Affect: Anxious affect present Course Course Emergency Course: Patient has been out of her Remeron for the last 5 days will restart and sent prescription to her local pharmacy and advised patient to keep follow-up with her primary care physician. Vital Signs Vital signs: Vital Signs Temperature 36.8 C 05/02/25 10:50 Pulse Rate 70 05/02/25 10:50 Respiratory Rate 18 05/02/25 10:50 Blood Pressure 136/92 H 05/02/25 10:50 Pulse Oximetry 96 05/02/25 10:50 Oxygen Delivery Room Air 05/02/25 10:50 Temperature 36.8 C 05/02/25 10:50 Pulse Rate 70 05/02/25 10:50 Respiratory Rate 18 05/02/25 10:50 Blood Pressure 136/92 H 05/02/25 10:50 Pulse Oximetry 96 05/02/25 10:50 Oxygen Delivery Room Air 05/02/25 10:50 Critical Care Time Critical Care Time Critical Care Time: No Discharge Plan Discharge Clinical Impression: Insomnia Qualifiers: Insomnia type: other insomnia Qualified Code(s): G47.09 - Other insomnia Patient Disposition: Home Condition: Stable Instructions: Antibiotic Form, Insomnia (ED) Additional Instructions: advised patient to take medication as prescribed and keep all follow-up appointments with primary care physician. Patient Language: Kiswahili Prescriptions: New mirtazapine 15 mg tablet 15 mg PO HS Qty: 14 0RF No Action albuterol sulfate 1.25 mg/3 mL solution for nebulization See Rx Instructions .ROUTE .COMPLEX Qty: 75 0RF Dose Instruction: INHALE 1 VIAL BY MOUTH EVERY FOUR HOURS NEEDED Rx Instructions: INHALE 1 VIAL BY MOUTH EVERY FOUR HOURS NEEDED albuterol sulfate 90 mcg/actuation HFA aerosol inhaler See Rx Instructions .ROUTE .COMPLEX Qty: 8.5 3RF Dose Instruction: INHALE 1 PUFF BY MOUTH EVERY 4 HOURS Rx Instructions: INHALE 1 PUFF BY MOUTH EVERY 4 HOURS mirtazapine 15 mg tablet See Rx Instructions .ROUTE .COMPLEX Qty: 90 0RF Dose Instruction: TAKE 1 TABLET BY MOUTH EVERY DAY Rx Instructions: TAKE 1 TABLET BY MOUTH EVERY DAY Trelegy Ellipta 200-62.5-25 mcg blister with device See Rx Instructions .ROUTE .COMPLEX Qty: 60 3RF Dose Instruction: INHALE ONE PUFF BY MOUTH DAILY Rx Instructions: INHALE ONE PUFF BY MOUTH DAILY Follow-up/Referrals: Alli Maki DO [Primary Care Provider, [facility]] Time of Disposition: 10:57
--- NOTE | 2025-05-02 11:41 | PC.NURSE ---
On 05/02/25, the student, [vahid tran ], provided care and completed [employer] documentation on this patient. I have reviewed the student's documentation and agree with the findings.
== END 2025-05-02 11:05 | disposition home or self-care (01) ==
LOC: CHSED 11:03
PROVIDERS: Emergency Provider Emergency Medicine; PCP Family Medicine
DX: G47.09 Other insomnia (principal); J44.9 Chronic obstructive pulmonary disease, unspecified; F17.210 Nicotine dependence, cigarettes, uncomplicated; Z79.899 Other long term (current) drug therapy
CPT/HCPCS: 99283

== ENCOUNTER 2025-06-22 08:36 | Emergency (ER) | payer OTHER, SELFPAY ==
[2025-06-22 08:38] VITALS: BP 144/99; PULSE 97; RESP 22; TEMP 36.6; O2SAT 92
[2025-06-22] MEDS: SODIUM CHLORIDE 0.9% IV 1,000 ML 999 ML IV CONT (08:56)
[2025-06-22] MEDS: ONDANSETRON INJ 4 MG/2 ML VIAL IV PUSH (08:57)
[2025-06-22 09:01] LABS: Hematocrit 56.8 % (35.0-49.0); Hemoglobin 19.0 g/dL (12.0-15.0); Immature Granulocyte Percent A 0.5 % (0.0-0.0); Lymphocytes Absolute Auto 1.91 K/mm3 (1.10-4.50); Mean Corpuscular HGB Conc 33.5 g/dL (32-36); Mean Corpuscular Hemoglobin 30.3 pg (27.0-31.0); Mean Corpuscular Volume 90.4 fL (78.0-102.0); Nucleated Red Blood Cells Absolute Auto 0.00 K/mm3 (0.00-0.00); Nucleated Red Blood Cells Perc 0.0 % (0-0.0); Platelet Count Result 293 K/mm3 (150-420); Red Blood Count 6.28 M/mm3 (4.20-5.40); White Blood Count 10.3 K/mm3 (4.8-10.8)
[2025-06-22 09:02] LABS: Add Urine Microscopic? YES; Appearance Urine Clear (Clear); Glucose Urine UA Negative (Negative); Leukocyte Esterase Ur 1+ (Negative); Nitrate Urine Negative (Negative); Specific Grav Ur 1.025 (1.010-1.020)
[2025-06-22 09:13] LABS: Alanine Aminotransferase 29 U/L (6-35); Albumin Level 5.3 g/dL (3.5-5.1); Alkaline Phosphatase 58 U/L (38-126); Anion Gap 13 mmol/L (4-12); Aspartate Amino Transferase 41 U/L (14-36); Blood Urea Nitrogen 18 mg/dL (7-17); Calcium 9.8 mg/dL (8.4-10.2); Carbon Dioxide 28 mmol/L (22-30); Chloride 98 mmol/L (98-107); Estimated CRCL calculation 40 ml/min; Estimated Glomerular Filt Rate > 60; Glucose 119 mg/dL (65-110); Osmolality Calculated 290 mOsm/kg (285-295); Potassium 3.9 mmol/L (3.4-5.0); Sodium 139 mmol/L (137-145); Total Protein 8.6 g/dL (6.3-8.2)
--- NOTE | 2025-06-22 09:36 | ED.NAVMDI ---
HPI - Nausea/Vomiting/Diarrhea General Chief complaint: Nausea/Vomiting/Diarrhea Stated complaint: congestion, diarrhea Time Seen by Provider: 06/22/25 08:43 Source: patient Mode of arrival: ambulatory Limitations: no limitations History of Present Illness HPI Narrative: 59-year-old with a history of COPD, anxiety here with the complaints of nausea, vomiting, diarrhea, feeling anxious, not feeling well for past 3 days. Denies any fever or chills. No cough or shortness of breath. No no family member is sick. Related Data Home Medications ?Medication ?Instructions ?Recorded ?Confirmed ?Last Taken ?Type albuterol sulfate 1.25 mg/3 mL mg 06/22/25 Unknown History solution for nebulization Allergies Allergy/AdvReac Type Severity Reaction Status Date / Time No Known Allergies Allergy Verified 06/22/25 08:41 Review of Systems Review of Systems: All systems reviewed & are unremarkable except as noted in HPI and below Constitutional: Constitutional: Reports no additional constitutional complaints Eyes: Eyes: Reports no additional eye complaints ENT: Reports system reviewed and no additional complaints, except as documented Cardiovascular: Cardiovascular: Reports no additional cardiovascular complaints Respiratory: Respiratory: Reports no additional respiratory complaints Gastrointestinal: Gastrointestinal: Reports as per HPI Musculoskeletal: Musculoskeletal: Reports no additional musculoskeletal complaints [facility] Past Medical History Medical History Positive colorectal cancer screening using Cologuard test delivery delivered 1994 COPD (chronic obstructive pulmonary disease) Surgical History Surgical History History of ear surgery Age 7 Family History Family History Father , in 1999 Lung cancer Mother Lung cancer Social History Social History Smoking packs per day: 0.5 Smoking cigarettes per day: 10.0 Years smoked: 20 Smoking pack-years: 10.00 Smoking status: Current every day smoker Tobacco type: cigarettes Substance use: former Substance use type: does not use Last use: 2002 Lack of Transportation: YES Lack of Food: Sometimes True Current Housing: I Have Housing Concerned About Future Housing: No Difficulty Paying Gas/Electric Bills: YES Difficulty Paying for Meds: No Currently Unemployed: No Education: High School Diploma/GED Difficulty w/ Childcare or Family Care: No Living arrangements: with family Additional living arrangements comments: . 4 adult children. Spiritual care concerns: No Exam Narrative: GENERAL: Well-appearing, well-nourished, and in no acute distress. HEAD: Normocephalic, atraumatic. EYES: PERRLA and EOMI. ENT: Nares clear, no rhinorrhea or epistaxis. Mucous membranes moist. NECK: Supple. CHEST: Clear to auscultation. No respiratory distress. HEART: Regular rate and rhythm. No murmur heard. Normal peripheral pulses. ABDOMEN: Soft, nontender, nondistended, normal active bowel sounds. EXTREMITIES: Normal range of motion. No edema. SKIN: Warm, dry, no rash. NEURO: No focal deficits. Alert and oriented x3. PSYCH: Normal mood and affect. Course Course Emergency Course: Patient feeling much better after IV hydration informed her about the lab work, advised her to take with rest, Tylenol ibuprofen for body aches and fever, Zofran as needed for nausea. Vital Signs Vital signs: Vital Signs Temperature 36.6 C 06/22/25 08:38 Pulse Rate 97 06/22/25 08:38 Respiratory Rate 22 H 06/22/25 08:38 Blood Pressure 144/99 H 06/22/25 08:38 Pulse Oximetry 92 06/22/25 08:38 Oxygen Delivery Room Air 06/22/25 08:38 Temperature 36.6 C 06/22/25 08:38 Pulse Rate 97 06/22/25 08:38 Respiratory Rate 22 H 06/22/25 08:38 Blood Pressure 144/99 H 06/22/25 08:38 Pulse Oximetry 92 06/22/25 08:38 Oxygen Delivery Room Air 06/22/25 08:38 MDM - Nausea/Vomiting/Diarrhea MDM Narrative Medical decision making narrative: 59-year-old with COPD here with a complains of nausea, vomiting, diarrhea, not feeling well for past 3 days with the do lab work, I will start IV fluids and Zofran for nausea control please Differential Diagnosis Differential diagnosis: Likely food poisoning, gastroenteritis and dehydration Lab Data Attestation: I reviewed the patient's lab results. 06/22/25 08:57 06/22/25 08:57 Labs: Lab Results 06/22/25 Range/Units 08:57 WBC 10.3 (4.8-10.8) K/mm3 RBC 6.28 H (4.20-5.40) M/mm3 Hgb 19.0 H (12.0-15.0) g/dL Hct 56.8 H (35.0-49.0) % MCV 90.4 (78.0-102.0) fL MCH 30.3 (27.0-31.0) pg MCHC 33.5 (32-36) g/dL RDW 12.5 (11.6-14.4) % Plt Count 293 (150-420) K/mm3 MPV 9.8 (9.2-11.8) fl Immature Gran % (Auto) 0.5 H (0.0-0.0) % Neut % (Auto) 74.9 H (50.0-70.0) % Lymph % (Auto) 18.6 (18.0-42.0) % [place] % (Auto) 5.4 (2.0-11.0) % Eos % (Auto) 0.1 L (1.0-6.0) % Baso % (Auto) 0.5 (0.0-1.0) % Lymph # (Auto) 1.91 (1.10-4.50) K/mm3 [place] # (Auto) 0.55 (0.10-0.90) K/mm3 Eos # (Auto) 0.01 L (0.02-0.50) K/mm3 Baso # (Auto) 0.05 (0.00-0.10) K/mm3 Abs Immat Gran (auto) 0.05 H (0.00-0.00) K/mm3 Absolute Neuts (auto) 7.69 H (1.70-7.20) K/mm3 Absolute Nucleated RBC 0.00 (0.00-0.00) K/mm3 Nucleated RBC % 0.0 (0-0.0) % Sodium 139 (137-145) mmol/L Potassium 3.9 (3.4-5.0) mmol/L Chloride 98 (98-107) mmol/L Carbon Dioxide 28 (22-30) mmol/L Anion Gap 13 H (4-12) mmol/L BUN 18 H (7-17) mg/dL Creatinine 0.72 (0.7-1.0) mg/dL Estim Creat Clear Calc 40 ml/min Estimated GFR > 60 (59 - ) Glucose 119 H (65-110) mg/dL Calculated Osmolality 290 (285-295) mOsm/kg Calcium 9.8 (8.4-10.2) mg/dL Total Bilirubin 2.0 H (0.2-1.3) mg/dL AST 41 H (14-36) U/L ALT 29 (6-35) U/L Alkaline Phosphatase 58 (38-126) U/L Total Protein 8.6 H (6.3-8.2) g/dL Albumin 5.3 H (3.5-5.1) g/dL Urine Color Yellow (Yellow) Urine Appearance Clear (Clear) Urine pH 5.5 (5.0-8.0) Ur Specific [place] 1.025 H (1.010-1.020) Urine Protein 1+ H (Negative) Urine Glucose (UA) Negative (Negative) Urine Ketones Trace H (Negative) Ur Blood (Man) Negative (Negative) Urine Nitrate Negative (Negative) Urine Bilirubin 1+ H (Negative) Urine Urobilinogen 1.0 (0.2-1.0) mg/dL Ur Leukocyte Esterase 1+ H (Negative) Urine RBC 0-2 (0-2) /hpf Urine WBC 4-6 H (0-3) /hpf Ur Squamous Epith Cells Few (Few) /hpf Urine Bacteria 1+ H (None) /hpf Urine Mucus Moderate H /lpf Discharge Plan Discharge Clinical Impression: Acute viral syndrome, Gastroenteritis Patient Disposition: Home Condition: Stable Instructions: Gastroenteritis (ED) Patient Language: Citizen Of [place] Prescriptions: New ondansetron 4 mg tablet,disintegrating 4 mg PO Q6-8H PRN (Reason: nausea and vomiting) Qty: 14 0RF No Action albuterol sulfate 1.25 mg/3 mL solution for nebulization albuterol sulfate 90 mcg/actuation HFA aerosol inhaler See Rx Instructions .ROUTE .COMPLEX Qty: 8.5 3RF Dose Instruction: INHALE 1 PUFF BY MOUTH EVERY 4 HOURS Rx Instructions: INHALE 1 PUFF BY MOUTH EVERY 4 HOURS Trelegy Ellipta 200-62.5-25 mcg blister with device See Rx Instructions .ROUTE .COMPLEX Qty: 60 3RF Dose Instruction: INHALE ONE PUFF BY MOUTH DAILY Rx Instructions: INHALE ONE PUFF BY MOUTH DAILY meloxicam 15 mg tablet 15 mg PO DAILY Qty: 90 0RF Follow-up/Referrals: Alli Maki DO [Primary Care Provider, [facility]] Time of Disposition: 09:38
[2025-06-22 09:52] VITALS: BP 113/89; PULSE 67; RESP 20; TEMP 37.1; O2SAT 93
[2025-06-22 17:33] LABS: Bilirubin,Total 1.2 mg/dL (0.2-1.3)
== END 2025-06-22 09:56 | disposition home or self-care (01) ==
PROVIDERS: Emergency Provider Family Medicine; PCP Family Medicine
DX: B34.9 Viral infection, unspecified (principal); K52.9 Noninfective gastroenteritis and colitis, unspecified; J44.9 Chronic obstructive pulmonary disease, unspecified; F41.9 Anxiety disorder, unspecified; F17.210 Nicotine dependence, cigarettes, uncomplicated
CPT/HCPCS: 36415; 80053; 81001; 85025; 96361; 96374; 99284; J2405; J7030

== ENCOUNTER 2025-07-30 11:48 | Observation (INO) | payer OTHER, SELFPAY ==
[2025-07-30] VITALS (30 sets, daily range): BP systolic 97–127; BP diastolic 54–111; PULSE 76–103; RESP 18–24; TEMP 36.6–38.1; O2SAT 88–98; BMI 13.6
--- NOTE | ~2025-07-30 | CT_ITS ---
EXAMINATION: CT chest abdomen wo con DATE: 07/31/2025 08:39 INDICATION: 3 weeks of dyspnea TECHNIQUE: Computed tomography (CT) of the chest and abdomen was performed without intravenous contrast. Automated exposure control and iterative reconstruction technique were employed. The dose-length product was 203.36 mGy-cm. COMPARISON: CT abdomen and pelvis dated 12/19/2021 FINDINGS: CHEST CT: Severe emphysema. There are few scattered small bilateral calcified pulmonary nodules. Mild peripheral atelectasis/scarring at the posterior basilar segment of the right lower lobe. No pneumonia, pulmonary edema, pleural effusion or pneumothorax. Heart size is normal. No pericardial effusion. Thoracic aorta is normal in caliber. No pathologically enlarged thoracic lymphadenopathy. Mild to moderate thoracic spondylosis. Prominent Schmorl's node along superior endplate of T2. ABDOMEN/PELVIS CT: Liver, spleen, pancreas, bilateral adrenal glands and kidneys are normal. No bowel obstruction. No pathologically enlarged abdominal or upper pelvic lymphadenopathy. Mild upper lumbar dextroscoliosis with severe spondylosis. IMPRESSION: 1. Severe emphysema with no acute cardiopulmonary disease. 2. No acute intra-abdominal/pelvic process. Reviewed, dictated and finalized at location A. ER RELATIONSHIP MANAGER
--- NOTE | ~2025-07-30 | XR_ITS ---
XR chest 1V portable 07/30/2025 12:46 Indication: Cough. History of COPD. Procedure: AP portable chest Comparison: Comparison to multiple prior studies sequentially, with oldest reviewed study dated 08/24/2022. Findings: Heart size normal. Chronic scarring right upper lobe. No focal air space disease, pulmonary edema, pleural effusion or suspected pneumothorax. No acute osseous abnormality. There is levoscoliosis of the thoracic spine. The lungs are hyperinflated which is consistent with, but not diagnostic of chronic obstructive pulmonary disease. Impression: 1: No acute cardiopulmonary disease. Reviewed, dictated and finalized at location O. E GRADER Impression: 1: No acute cardiopulmonary disease.
--- NOTE | 2025-07-30 11:59 | PC.NURSE ---
covid swab sent to lab
--- NOTE | 2025-07-30 12:05 | ED_ITS ---
HPI - General Adult General Chief complaint: Upper Respiratory Infection Stated complaint: cough and congestion Time Seen by Provider: 07/30/25 11:58 History of Present Illness HPI narrative: Patricia is a 59F with a PMH of arthritis, COPD, anxiety, and depression that presented to the ED not feeling well. Starting yesterday she had worsening cough, sputum production, dyspnea with coughing, fevers, rhinorrhea and was feeling weak. No CP. She does admit night sweats but she has these with menopause anyway. Related Data Allergies Allergy/AdvReac Type Severity Reaction Status Date / Time No Known Allergies Allergy Verified 08/13/25 10:33 Review of Systems 2 Review of Systems: All systems reviewed & are unremarkable except as noted in HPI and below PMFSH Past Medical History Medical History Positive colorectal cancer screening using Cologuard test delivery delivered 1994 COPD (chronic obstructive pulmonary disease) Surgical History Surgical History History of ear surgery Age 7 Family History Family History Father , in 1999 Lung cancer Mother Lung cancer Social History Social History Smoking packs per day: 1 Smoking cigarettes per day: 20.0 Years smoked: 30 Smoking pack-years: 30.00 Smoking status: Current every day smoker Tobacco type: cigarettes Second hand tobacco smoke exposure: No Alcohol intake: never Substance use: never Substance use type: does not use Last use: 2002 Lack of Transportation: No Lack of Food: Never True Current Housing: I Have Housing Concerned About Future Housing: No Difficulty Paying Gas/Electric Bills: No Difficulty Paying for Meds: No Currently Unemployed: No Education: High School Diploma/GED Difficulty w/ Childcare or Family Care: No Living arrangements: with family Additional living arrangements comments: . 4 adult children. Spiritual care concerns: No Exam 2 Const: General: cooperative, healthy appearing, comfortable, no acute distress, well developed, alert, awake and Physically active O rientation/consciousness: oriented to person, oriented to place and oriented to time HENMT: Head: normal to inspection, normocephalic and atraumatic Ears: h earing grossly normal bilaterally and external ears normal Face/Nose/Sinus: N ormal external nose present Eyes: General: appearance normal, both eyes and all related structures P eriorbital: periorbital findings normal Sclera: sclerae normal Pupils: E qual, round and reactive pupils present Neck: Neck: normal visual inspection Chest: Chest palpation & inspection: normal inspection of the chest Resp: Effort & Inspection: normal respiratory effort, able to speak in complete sentences and no respiratory distress Other: diffuse scant wheezing Cardio: Jugular venous distension: no JVD Rate: regular rate Rhythm: r egular rhythm Skin: General skin exam: normal color and no rashes or lesions noted Neuro: General: oriented to person, oriented to place and oriented to time Cranial nerves: Yes Equal, round and reactive pupils present Extrem: General: normal to inspection Course Course Emergency Course: Ordered radiographs, labs, cultures and duoneb Labs showed mild leukocytosis. Negative viral testing. CMP largely unremarkable. XR chest 1V portable 07/30/2025 12:46 Indication: Cough. History of COPD. Procedure: AP portable chest Comparison: Comparison to multiple prior studies sequentially, with oldest reviewed study dated 08/24/2022. Findings: Heart size normal. Chronic scarring right upper lobe. No focal air space disease, pulmonary edema, pleural effusion or suspected pneumothorax. No acute osseous abnormality. There is levoscoliosis of the thoracic spine. The lungs are hyperinflated which is consistent with, but not diagnostic of chronic obstructive pulmonary disease. Impression: 1: No acute cardiopulmonary disease. Oxygen was placed as she was saturating down to 88 while awake. Given the low oxygen saturation, tachycardia, fever and tachypnea she was given Levaquin and admitted for observation Vital Signs Vital signs: Vital Signs Temperature 100.5 F H 07/30/25 11:50 Pulse Rate 103 H 07/30/25 11:50 Respiratory Rate 18 07/30/25 11:50 Blood Pressure 127/86 07/30/25 11:50 Pulse Oximetry 92 07/30/25 11:50 Oxygen Delivery Room Air 07/30/25 11:50 Temperature 98.3 F 07/31/25 16:00 Pulse Rate 80 07/31/25 16:00 Respiratory Rate 20 07/31/25 16:00 Blood Pressure 100/58 L 07/31/25 16:00 Pulse Oximetry 94 07/31/25 16:00 Oxygen Delivery Nasal Cannula 07/31/25 16:00 Oxygen Flow Rate 2 07/31/25 16:00 MDM Differential Diagnosis Differential Diagnosis: sepsis Lab Data 07/31/25 08:23 07/31/25 08:23 Labs: Lab Results 07/30/25 07/30/25 07/30/25 Range/Units 11:53 11:55 12:11 WBC (4.8-10.8) K/mm3 RBC (4.20-5.40) M/mm3 Hgb (12.0-15.0) g/dL Hct (35.0-49.0) % MCV (78.0-102.0) fL MCH (27.0-31.0) pg MCHC (32-36) g/dL RDW (11.6-14.4) % Plt Count (150-420) K/mm3 MPV (9.2-11.8) fl Immature Gran % (Auto) (0.0-0.0) % Neut % (Auto) (50.0-70.0) % Lymph % (Auto) (18.0-42.0) % [place] % (Auto) (2.0-11.0) % Eos % (Auto) (1.0-6.0) % Baso % (Auto) (0.0-1.0) % Lymph # (Auto) (1.10-4.50) K/mm3 [place] # (Auto) (0.10-0.90) K/mm3 Eos # (Auto) (0.02-0.50) K/mm3 Baso # (Auto) (0.00-0.10) K/mm3 Abs Immat Gran (auto) (0.00-0.00) K/mm3 Absolute Neuts (auto) (1.70-7.20) K/mm3 Absolute Nucleated RBC (0.00-0.00) K/mm3 Nucleated RBC % (0-0.0) % PT (9.50-12.1) Seconds INR Sodium (137-145) mmol/L Potassium (3.4-5.0) mmol/L Chloride (98-107) mmol/L Carbon Dioxide (22-30) mmol/L Anion Gap (4-12) mmol/L BUN (7-17) mg/dL Creatinine (0.7-1.0) mg/dL Estim Creat Clear Calc ml/min Estimated GFR (59 - ) Glucose (65-110) mg/dL Calculated Osmolality (285-295) mOsm/kg Lactic Acid (0.7-2.0) mmol/L Calcium (8.4-10.2) mg/dL Total Bilirubin (0.2-1.3) mg/dL AST (14-36) U/L ALT (6-35) U/L Alkaline Phosphatase (38-126) U/L Troponin I (0.000-0.034) ng/mL NT-Pro-B Natriuret Pep (19.9-100) pg/mL Total Protein (6.3-8.2) g/dL Albumin (3.5-5.1) g/dL Urine Color Light yellow (Yellow) Urine Appearance Clear (Clear) Urine pH 5.5 (5.0-8.0) Ur Specific [place] 1.025 H (1.010-1.020) Urine Protein Trace H (Negative) Urine Glucose (UA) Negative (Negative) Urine Ketones Trace H (Negative) Ur Blood (Man) Negative (Negative) Urine Nitrate Negative (Negative) Urine Bilirubin 1+ H (Negative) Urine Urobilinogen 0.2 (0.2-1.0) mg/dL Leukocyte Esterase Rfl 1+ H (Negative) SEKOU/UL Urine RBC 0-2 (0-2) /hpf Urine WBC 16-20 H (0-3) /hpf Ur Squamous Epith Cells Moderate H (Few) /hpf Urine Bacteria 1+ (None) /hpf Influenza A (RT-PCR) Negative (Negative) Influenza B (RT-PCR) Negative (Negative) RSV (RT-PCR) Negative (Negative) SARS-CoV-2 RNA (RT-PCR) Negative (Negative) Group A Strep (PCR) Not detected (Negative) 07/30/25 Range/Units 12:22 WBC 11.9 H (4.8-10.8) K/mm3 RBC 5.32 (4.20-5.40) M/mm3 Hgb 16.2 H (12.0-15.0) g/dL Hct 47.7 (35.0-49.0) % MCV 89.7 (78.0-102.0) fL MCH 30.5 (27.0-31.0) pg MCHC 34.0 (32-36) g/dL RDW 13.0 (11.6-14.4) % Plt Count 301 (150-420) K/mm3 MPV 9.5 (9.2-11.8) fl Immature Gran % (Auto) 0.6 H (0.0-0.0) % Neut % (Auto) 83.5 H (50.0-70.0) % Lymph % (Auto) 8.3 L (18.0-42.0) % [place] % (Auto) 7.1 (2.0-11.0) % Eos % (Auto) 0.1 L (1.0-6.0) % Baso % (Auto) 0.4 (0.0-1.0) % Lymph # (Auto) 0.99 L (1.10-4.50) K/mm3 [place] # (Auto) 0.85 (0.10-0.90) K/mm3 Eos # (Auto) 0.01 L (0.02-0.50) K/mm3 Baso # (Auto) 0.05 (0.00-0.10) K/mm3 Abs Immat Gran (auto) 0.07 H (0.00-0.00) K/mm3 Absolute Neuts (auto) 9.94 H (1.70-7.20) K/mm3 Absolute Nucleated RBC 0.00 (0.00-0.00) K/mm3 Nucleated RBC % 0.0 (0-0.0) % PT 10.5 (9.50-12.1) Seconds INR 0.9 Sodium 137 (137-145) mmol/L Potassium 4.0 (3.4-5.0) mmol/L Chloride 102 (98-107) mmol/L Carbon Dioxide 19 L (22-30) mmol/L Anion Gap 16 H (4-12) mmol/L BUN 19 H (7-17) mg/dL Creatinine 0.61 L (0.7-1.0) mg/dL Estim Creat Clear Calc 46 ml/min Estimated GFR > 60 (59 - ) Glucose 107 (65-110) mg/dL Calculated Osmolality 286 (285-295) mOsm/kg Lactic Acid 0.9 (0.7-2.0) mmol/L Calcium 9.9 (8.4-10.2) mg/dL Total Bilirubin 0.7 (0.2-1.3) mg/dL AST 35 (14-36) U/L ALT 20 (6-35) U/L Alkaline Phosphatase 84 (38-126) U/L Troponin I < 0.012 (0.000-0.034) ng/mL NT-Pro-B Natriuret Pep 79 (19.9-100) pg/mL Total Protein 7.9 (6.3-8.2) g/dL Albumin 5.0 (3.5-5.1) g/dL Urine Color (Yellow) Urine Appearance (Clear) Urine pH (5.0-8.0) Ur Specific [place] (1.010-1.020) Urine Protein (Negative) Urine Glucose (UA) (Negative) Urine Ketones (Negative) Ur Blood (Man) (Negative) Urine Nitrate (Negative) Urine Bilirubin (Negative) Urine Urobilinogen (0.2-1.0) mg/dL Leukocyte Esterase Rfl (Negative) SEKOU/UL Urine RBC (0-2) /hpf Urine WBC (0-3) /hpf Ur Squamous Epith Cells (Few) /hpf Urine Bacteria (None) /hpf Influenza A (RT-PCR) (Negative) Influenza B (RT-PCR) (Negative) RSV (RT-PCR) (Negative) SARS-CoV-2 RNA (RT-PCR) (Negative) Group A Strep (PCR) (Negative) Imaging Data Radiologist's impression: ITS Impressions Chest X-Ray 07/30/25 12:50 Impression: 1: No acute cardiopulmonary disease. Chest/Abdomen CT 07/31/25 09:15 IMPRESSION: 1. Severe emphysema with no acute cardiopulmonary disease. 2. No acute intra-abdominal/pelvic process. Discharge Plan Discharge Clinical Impression: Sepsis Patient Disposition: [facility] Condition: Stable
[2025-07-30] MEDS: IPRATROPIUM 0.5 MG/ALBUTEROL SULFATE 2.5 MG (BASE) AMPUL.NEB 3 ML INHALATION ×2 (12:25→18:21)
[2025-07-30 12:33] LABS: Hematocrit 47.7 % (35.0-49.0); Hemoglobin 16.2 g/dL (12.0-15.0); Immature Granulocyte Percent A 0.6 % (0.0-0.0); Lymphocytes Absolute Auto 0.99 K/mm3 (1.10-4.50); Mean Corpuscular HGB Conc 34.0 g/dL (32-36); Mean Corpuscular Hemoglobin 30.5 pg (27.0-31.0); Mean Corpuscular Volume 89.7 fL (78.0-102.0); Nucleated Red Blood Cells Absolute Auto 0.00 K/mm3 (0.00-0.00); Nucleated Red Blood Cells Perc 0.0 % (0-0.0); Platelet Count Result 301 K/mm3 (150-420); Red Blood Count 5.32 M/mm3 (4.20-5.40); White Blood Count 11.9 K/mm3 (4.8-10.8)
[2025-07-30 12:34] LABS: Strep Group A RT-PCR NOT DETECTED (Negative)
[2025-07-30 12:35] LABS: Add Urine Microscopic? YES; Appearance Urine Clear (Clear); Glucose Urine UA Negative (Negative); Leukocyte Esterase Ur 1+ LEU/UL (Negative); Nitrate Urine Negative (Negative); Specific Grav Ur 1.025 (1.010-1.020)
[2025-07-30 12:46] LABS: Influenza A QL RT-PCR Negative (Negative); Influenza B QL RT-PCR Negative (Negative); RSV RNA, RT-PCR Negative (Negative); SARS-CoV-2 RNA PCR Negative (Negative)
[2025-07-30 12:46] LABS: Alanine Aminotransferase 20 U/L (6-35); Albumin Level 5.0 g/dL (3.5-5.1); Alkaline Phosphatase 84 U/L (38-126); Anion Gap 16 mmol/L (4-12); Aspartate Amino Transferase 35 U/L (14-36); Bilirubin,Total 0.7 mg/dL (0.2-1.3); Blood Urea Nitrogen 19 mg/dL (7-17); Calcium 9.9 mg/dL (8.4-10.2); Carbon Dioxide 19 mmol/L (22-30); Chloride 102 mmol/L (98-107); Estimated CRCL calculation 46 ml/min; Estimated Glomerular Filt Rate > 60; Glucose 107 mg/dL (65-110); INR 0.9; Osmolality Calculated 286 mOsm/kg (285-295); Potassium 4.0 mmol/L (3.4-5.0); Prothrombin Time 10.5 Seconds (9.50-12.1); Sodium 137 mmol/L (137-145); Total Protein 7.9 g/dL (6.3-8.2)
[2025-07-30] MEDS: levoFLOXacin 750 MG/D5W 150 ML 750 MG/150 ML BAG 100 MG IVPB (12:50)
[2025-07-30 12:58] LABS: NT Pro B Type Natriuretic Pept 79 pg/mL (19.9-100); Troponin I < 0.012 ng/mL (0.000-0.034)
--- NOTE | 2025-07-30 15:07 | ADMGEN ---
This patient, Patricia Bella, was admitted to 2nd Floor Room 205-1. Patient/family oriented to hospital policies and general routines including ID bracelet, bed and alarms, visiting hours, pain management, procedures, bathroom and other care routines, personal items, smoking policy, room service/diet, and visiting hours. Information on how to activate the Rapid Response Team has been discussed. Patient/Family are encouraged to report perceived risks to care and to ask questions if they do not understand what they are told or what they should do. Patient present with no cough on arrival, was able to eat lunch meal. No SOB noted. Continent to B/B. Alert/Oriented x 4, O2/2L new to her and does not use at home. Walks independently at home without devices. Pleasant and cooperative at this time.
[2025-07-30] MEDS: SODIUM CHLORIDE 0.9% IV 1,000 ML 999 ML IV CONT (15:25)
[2025-07-31] VITALS (14 sets, daily range): BP systolic 90–100; BP diastolic 56–61; PULSE 68–89; RESP 12–22; TEMP 36.4–36.8; O2SAT 88–100
[2025-07-31] MEDS: IPRATROPIUM 0.5 MG/ALBUTEROL SULFATE 2.5 MG (BASE) AMPUL.NEB 3 ML INHALATION ×3 (00:44→12:14)
[2025-07-31] MEDS: SODIUM CHLORIDE 0.9% IV 1,000 ML 75 ML IV CONT (00:49)
[2025-07-31 08:27] LABS: Hematocrit 43.0 % (35.0-49.0); Hemoglobin 14.1 g/dL (12.0-15.0); Immature Granulocyte Percent A 0.2 % (0.0-0.0); Lymphocytes Absolute Auto 1.15 K/mm3 (1.10-4.50); Mean Corpuscular HGB Conc 32.8 g/dL (32-36); Mean Corpuscular Hemoglobin 30.3 pg (27.0-31.0); Mean Corpuscular Volume 92.5 fL (78.0-102.0); Nucleated Red Blood Cells Absolute Auto 0.00 K/mm3 (0.00-0.00); Nucleated Red Blood Cells Perc 0.0 % (0-0.0); Platelet Count Result 219 K/mm3 (150-420); Red Blood Count 4.65 M/mm3 (4.20-5.40); White Blood Count 8.8 K/mm3 (4.8-10.8)
[2025-07-31 08:38] LABS: Alanine Aminotransferase 15 U/L (6-35); Albumin Level 4.0 g/dL (3.5-5.1); Alkaline Phosphatase 62 U/L (38-126); Anion Gap 9 mmol/L (4-12); Aspartate Amino Transferase 24 U/L (14-36); Bilirubin,Total 0.6 mg/dL (0.2-1.3); Blood Urea Nitrogen 7 mg/dL (7-17); Calcium 8.8 mg/dL (8.4-10.2); Carbon Dioxide 25 mmol/L (22-30); Chloride 106 mmol/L (98-107); Estimated CRCL calculation 54 ml/min; Estimated Glomerular Filt Rate > 60; Glucose 101 mg/dL (65-110); Osmolality Calculated 288 mOsm/kg (285-295); Potassium 3.7 mmol/L (3.4-5.0); Sodium 140 mmol/L (137-145); Total Protein 6.3 g/dL (6.3-8.2)
[2025-07-31] MEDS: FLUTICASONE/UMECLIDIN/VILANTER 100-62.5-25 MCG ELLIPTA 1 PUFF INHALATION (08:45)
--- NOTE | 2025-07-31 10:10 | HOMEO2EVAL ---
Evaluation was performed at [facility] Home Oxygen Evaluation RC: Home Oxygen (O2) Evaluation Start: 07/31/25 08:10 Freq: ONCE Status: Active Protocol: RPE Activity Type Activity Date Activity User E-sign Co-sign Detail Recorded Client Recorded Date Recorded By Document 07/31/25 09:50 DV [id number] 07/31/25 10:05 DV Document 07/31/25 09:55 DV [id number] 07/31/25 10:06 DV Document 07/31/25 10:08 DV [id number] 07/31/25 10:09 DV Document 07/31/25 10:09 DV [id number] 07/31/25 10:10 DV 07/31/25 07/31/25 07/31/25 09:50 09:55 10:08 Home O2 Evaluation [Oxygen] -Test Phase Resting Exercise Exercise -Oxygen Delivery Room Air Room Air Nasal Cannula -Oxygen Flow Rate (L/min) 1 [Pulse Oximetry] -Pulse Oximetry (90-100 %) 90 88 L 88 L [Pulse Rate] -Pulse Rate (60-100 beats/min) 69 82 69 [Evaluation] -Activity Tolerance Good Good -Rating of Perceived Dyspnea (PD) +2 Mild, Some +2 Mild, Some Difficulty, Difficulty, Noticeable to Noticeable to the Observer the Observer -Rate of Perceived Exertion (PE) 11 Fairly light 12 Query Text:Click the Protocol Button to View the RPE Scale [Exercise] -Ambulation Distance (feet) 20 5 -Ambulation Distance (meters) 6.09 1.52 [Comments] -Home Oxygen Evaluation Comments Will begin home Will increase Will increase O2 eval on O2 to 1L and O2 to 2L and room air. continue walk will continue walk [Charges] -Evaluation Charges 07/31/25 10:09 Home O2 Evaluation [Oxygen] -Test Phase Exercise -Oxygen Delivery -Oxygen Flow Rate (L/min) 2 [Pulse Oximetry] -Pulse Oximetry (90-100 %) 90 [Pulse Rate] -Pulse Rate (60-100 beats/min) 68 [Evaluation] -Activity Tolerance Good -Rating of Perceived Dyspnea (PD) +2 Mild, Some Difficulty, Noticeable to the Observer -Rate of Perceived Exertion (PE) 12 Query Text:Click the Protocol Button to View the RPE Scale [Exercise] -Ambulation Distance (feet) 125 -Ambulation Distance (meters) 38.09 [Comments] -Home Oxygen Evaluation Comments Patient will need 2L with activity. [Charges] -Evaluation Charges O2 Evaluation Charge
--- NOTE | 2025-07-31 10:19 | P.PNCROSS_ITS ---
Event Note Event Note Event Note: Patient seen and examined at bedside. Patient completed home oxygen study per r espiratory therapy, see their documentation for results. Patient requires 2L oxygen by nasal cannula for any activity. Patient will require a home concentrator and portable oxygen on discharge from the hospital.
--- NOTE | 2025-07-31 10:43 | P.SS_ITS ---
Same Day Admit/Disch: HPI History of Present Illness Chief complaint: cough and congestion Narrative: Patricia Bella is a 59 year old female with PMH of arthritis, COPD, anxiety and depression. Patient presented to the ER with complaints of cough, sputum production, generalized weakness and dyspnea with coughing. Chest x-ray was without acute findings. Viral swab for Covid, RSV and influenza was negative. Labs showed mild leukocytosis. Patient was hypoxic and requiring oxygen. Patient was given Levaquin and admitted for further evaluation and treatment. [facility] Past Medical History Medical History Positive colorectal cancer screening using Cologuard test delivery delivered 1994 COPD (chronic obstructive pulmonary disease) Surgical History Surgical History History of ear surgery Age 7 Family History Family History Father , in 1999 Lung cancer Mother Lung cancer Social History Social History Smoking packs per day: 1 Smoking cigarettes per day: 20.0 Years smoked: 30 Smoking pack-years: 30.00 Smoking status: Current every day smoker Tobacco type: cigarettes Second hand tobacco smoke exposure: No Alcohol intake: never Substance use: never Substance use type: does not use Last use: 2002 Lack of Transportation: No Lack of Food: Never True Current Housing: I Have Housing Concerned About Future Housing: No Difficulty Paying Gas/Electric Bills: No Difficulty Paying for Meds: No Currently Unemployed: No Education: High School Diploma/GED Difficulty w/ Childcare or Family Care: No Living arrangements: with family Additional living arrangements comments: . 4 adult children. Spiritual care concerns: No Same Day Admit/Disch: Med Pre-admit Medications Home Medications ?Medication ?Instructions ?Recorded ?Confirmed ?Type albuterol sulfate 90 mcg/actuation See Rx Instructions .Route 05/07/25 08/13/25 Rx aerosol inhaler .COMPLEX #8.5 ea fluticasone fur. 200 mcg-umeclid See Rx Instructions . Route 05/07/25 08/13/25 Rx 62.5 mcg-vilant 25 mcg .COMPLEX #60 ea inhalat.powder (Trelegy Ellipta) ipratropium 0.5 mg-albuterol 3 mg 3 ml inhalation TID 30 days #270 mL 07/31/25 08/13/25 Rx (2.5 mg base)/3 mL nebulization soln lactulose 20 gram oral packet 20 g PO BID #30 ea 08/1308/13/25 Rx mirtazapine 15 mg tablet (Remeron) 7.5 mg (1/2 x 15 mg ) PO HS #90 tabs 08/13/25 08/13/25 Rx Review of Systems Review of Systems All systems reviewed & are unremarkable except as noted in HPI and below Exam Const: General: comfortable and no acute distress HENMT: Face/Nose/Sinus: Normal nares present Mouth: Yes moist mucous membranes Eyes: General: appearance normal, both eyes and all related structures Sclera: sclerae normal Neck: Neck: supple Resp: Effort & Inspection: normal respiratory effort Auscultation: wheezes Cardio: Rate: regular rate Rhythm: regular rhythm GI: GI Palp: Yes Soft to palpation Auscultation: normal bowel sounds Skin: General skin exam: normal color and no rashes or lesions noted Neuro: General: gait normal Speech: normal speech Motor exam (neuro): 5/5 motor strength present throughout Sensory Exam: normal sensation Extrem: General: normal to inspection Psych: Mental Status: mental status grossly normal Affect: normal affect DS: Data Data Completed and Pending Pending studies at discharge: blood cultures x 2 sets Labs on day of discharge: Labs from last 24 hours 07/31/25 07/30/25 07/30/25 08:23 12:22 12:11 WBC 8.8 11.9 H RBC 4.65 5.32 Hgb 14.1 16.2 H Hct 43.0 47.7 MCV 92.5 89.7 MCH 30.3 30.5 MCHC 32.8 34.0 RDW 13.2 13.0 Plt Count 219 301 MPV 9.6 9.5 Immature Gran % (Auto) 0.2 H 0.6 H Neut % (Auto) 78.6 H 83.5 H Lymph % (Auto) 13.1 L 8.3 L [place] % (Auto) 7.5 7.1 Eos % (Auto) 0.1 L 0.1 L Baso % (Auto) 0.5 0.4 Lymph # (Auto) 1.15 0.99 L [place] # (Auto) 0.66 0.85 Eos # (Auto) 0.01 L 0.01 L Baso # (Auto) 0.04 0.05 Abs Immat Gran (auto) 0.02 H 0.07 H Absolute Neuts (auto) 6.87 9.94 H Absolute Nucleated RBC 0.00 0.00 Nucleated RBC % 0.0 0.0 PT 10.5 INR 0.9 Sodium 140 137 Potassium 3.7 4.0 Chloride 106 102 Carbon Dioxide 25 19 L Anion Gap 9 16 H BUN 7 D 19 H Creatinine 0.50 L 0.61 L Estim Creat Clear Calc 54 46 Estimated GFR > 60 > 60 Glucose 101 107 Calculated Osmolality 288 286 Lactic Acid 0.9 Calcium 8.8 9.9 Total Bilirubin 0.6 0.7 AST 24 35 ALT 15 20 Alkaline Phosphatase 62 84 Troponin I < 0.012 NT-Pro-B Natriuret Pep 79 Total Protein 6.3 7.9 Albumin 4.0 5.0 Urine Color Light yellow Urine Appearance Clear Urine pH 5.5 Ur Specific Mall[place] 1.025 H Urine Protein Trace H Urine Glucose (UA) Negative Urine Ketones Trace H Ur Blood (Man) Negative Urine Nitrate Negative Urine Bilirubin 1+ H Urine Urobilinogen 0.2 Leukocyte Esterase Rfl 1+ H Urine RBC 0-2 Urine WBC 16-20 H Ur Squamous Epith Cells Moderate H Urine Bacteria 1+ Influenza A (RT-PCR) Influenza B (RT-PCR) RSV (RT-PCR) SARS-CoV-2 RNA (RT-PCR) Group A Strep (PCR) 07/30/25 07/30/25 11:55 11:53 WBC RBC Hgb Hct MCV MCH MCHC RDW Plt Count MPV Immature Gran % (Auto) Neut % (Auto) Lymph % (Auto) [place] % (Auto) Eos % (Auto) Baso % (Auto) Lymph # (Auto) [place] # (Auto) Eos # (Auto) Baso # (Auto) Abs Immat Gran (auto) Absolute Neuts (auto) Absolute Nucleated RBC Nucleated RBC % PT INR Sodium Potassium Chloride Carbon Dioxide Anion Gap BUN Creatinine Estim Creat Clear Calc Estimated GFR Glucose Calculated Osmolality Lactic Acid Calcium Total Bilirubin AST ALT Alkaline Phosphatase Troponin I NT-Pro-B Natriuret Pep Total Protein Albumin Urine Color Urine Appearance Urine pH Ur Specific [place] Urine Protein Urine Glucose (UA) Urine Ketones Ur Blood (Man) Urine Nitrate Urine Bilirubin Urine Urobilinogen Leukocyte Esterase Rfl Urine RBC Urine WBC Ur Squamous Epith Cells Urine Bacteria Influenza A (RT-PCR) Negative Influenza B (RT-PCR) Negative RSV (RT-PCR) Negative SARS-CoV-2 RNA (RT-PCR) Negative Group A Strep (PCR) Not detected Imaging Radiologist's impression: Ordering Physician: Alli Maki DO Date of Service: 07/30/25 Procedure(s): XR chest 1V portable Accession Number(s): [id number] cc: Alli Maki DO~ XR chest 1V portable 07/30/2025 12:46 Indication: Cough. History of COPD. Procedure: AP portable chest Comparison: Comparison to multiple prior studies sequentially, with oldest reviewed study dated 08/24/2022. Findings: Heart size normal. Chronic scarring right upper lobe. No focal air space disease, pulmonary edema, pleural effusion or suspected pneumothorax. No acute osseous abnormality. There is levoscoliosis of the thoracic spine. The lungs are hyperinflated which is consistent with, but not diagnostic of chronic obstructive pulmonary disease. Impression: 1: No acute cardiopulmonary disease. Ordering Physician: Nathalie Ashton APRN Date of Service: 07/31/25 Procedure(s): CT chest abdomen wo con Accession Number(s): [id number] cc: Alli Maki DO; Francesco Hayden MD; Nathalie Ashton, MISTY~ EXAMINATION: CT chest abdomen wo con DATE: 07/31/2025 08:39 INDICATION: 3 weeks of dyspnea TECHNIQUE: Computed tomography (CT) of the chest and abdomen was performed without intravenous contrast. Automated exposure control and iterative reconstruction technique were employed. The dose-length product was 203.36 mGy- cm. COMPARISON: CT abdomen and pelvis dated 12/19/2021 FINDINGS: CHEST CT: Severe emphysema. There are few scattered small bilateral calcified pulmonary nodules. Mild peripheral atelectasis/scarring at the posterior basilar segment of the right lower lobe. No pneumonia, pulmonary edema, pleural effusion or pneumothorax. Heart size is normal. No pericardial effusion. Thoracic aorta is normal in caliber. No pathologically enlarged thoracic lymphadenopathy. Mild to moderate thoracic spondylosis. Prominent Schmorl's node along superior endplate of T2. ABDOMEN/PELVIS CT: Liver, spleen, pancreas, bilateral adrenal glands and kidneys are normal. No bowel obstruction. No pathologically enlarged abdominal or upper pelvic lymphadenopathy. Mild upper lumbar dextroscoliosis with severe spondylosis. IMPRESSION: 1. Severe emphysema with no acute cardiopulmonary disease. 2. No acute intra-abdominal/pelvic process. DS: Summary Hospital Course Reason for hospitalization: shortness of breath, cough Hospital Course: Patricia Bella is a 59 year old female with PMH of arthritis, COPD, anxiety and depression. Patient presented to the ER with complaints of cough, sputum production, generalized weakness and dyspnea with coughing. Chest x-ray was without acute findings. Viral swab for Covid, RSV and influenza was negative. Labs showed mild leukocytosis. Patient was hypoxic and requiring oxygen. Patient was given Levaquin and admitted for further evaluation and treatment. Due to patient's elevated wbc count and new oxygen requirements a CT chest, abdomen and pelvis was completed and showed no acute intraabdominal process but did show severe emphysema. Respiratory therapy completed a home oxygen study and patient requires 2L of oxygen at all times. Care coordination arranged home oxygen and patient will discharge once oxygen is delivered to her home and the hospital. Patient will continue on oral steroids, nebulizer treatments and PO Levaquin on discharge for her COPD exacerbation. Patient will need to follow up with her PCP within 1-2 weeks of discharge. Patient provided with smoking cessation information prior to discharge. Time spent discussing smoking cessation with patient: 3 to 10 minutes Time Spent with Patient Time attestation: Total time spent providing and/or coordinating discharge services: 35 Minutes DS: Admitting Diagnosis Discharge Date 07/31/2025 Admitting Diagnosis COPD exacerbation Unintentional weight loss Depression and anxiety Sepsis DS: Discharge Diagnosis Discharge Diagnosis (1) COPD exacerbation: Code(s): J44.1 - Chronic obstructive pulmonary disease with (acute) exacerbation Status: Acute (2) Unintentional weight loss: Code(s): R63.4 - Abnormal weight loss Status: Acute (3) Anxiety and depression: Code(s): F41.9 - Anxiety disorder, unspecified; F32.A - Depression, unspecified Status: Acute (4) Sepsis: Code(s): A41.9 - Sepsis, unspecified organism Status: Acute Discharge Plan Discharge Attending physician on discharge: Daniel Hayden Consulting providers: Nathalie Ashton; Juve Morgan; Hill Hu Discharging Clinician: Nathalie Ashton Patient Disposition: Home Activity: as tolerated Diet: regular Discharge Instructions: Please discharge home after home oxygen has been delivered. Please ask your PCP about a referral to a rand tacker (lung specialist). Do not smoke while using oxygen. Patient Instructions: Antibiotic Form, Prednisone (By mouth), Levofloxacin (By mouth), Using Oxygen at Home (DC), COPD (Chronic Obstructive Pulmonary Disease) (GEN), Cold Symptoms (ED) Patient Language: Swedish Stand Alone Forms: General Discharge Information Follow-up/Referrals: Alli Maki DO [Primary Care Provider, [facility]] Referral Note: Please call for an appointment to be seen within 1-2 weeks of discharge. Discharge Medications: New ipratropium-albuterol 0.5 mg-3 mg(2.5 mg base)/3 mL solution for nebulization 3 ml inhalation TID 30 Days Qty: 270 0RF Continued albuterol sulfate 90 mcg/actuation HFA aerosol inhaler See Rx Instructions .ROUTE .COMPLEX Qty: 8.5 3RF Dose Instruction: INHALE 1 PUFF BY MOUTH EVERY 4 HOURS Rx Instructions: INHALE 1 PUFF BY MOUTH EVERY 4 HOURS Trelegy Ellipta 200-62.5-25 mcg blister with device See Rx Instructions .ROUTE .COMPLEX Qty: 60 3RF Dose Instruction: INHALE ONE PUFF BY MOUTH DAILY Rx Instructions: INHALE ONE PUFF BY MOUTH DAILY No Action mirtazapine [Remeron] 15 mg tablet 7.5 mg PO HS Qty: 90 0RF lactulose 20 gram packet 20 g PO BID Qty: 30 0RF Date of admission: 07/30/25 15:09 Primary Care Provider: Alli Maki Admitting Provider: Daniel Hayden Attending physician on admission: Daniel Hayden Condition: Stable
[2025-07-31] MEDS: levoFLOXacin 750 MG/D5W 150 ML 750 MG/150 ML BAG 100 MG IVPB (11:17)
[2025-07-31] MEDS: HYDROcodone/acetaminophen (*CRX) 5-325 MG TABLET 1 TAB PO (13:32)
--- NOTE | 2025-07-31 14:11 | PC.NURSE ---
Legal Analyst from [facility] calls to inform that oxygen will need a prior authorization before [facility] can get it to patient. They inform they have all clinical documentation they need to sent to patients insurance but it is undetermined how long this prior authorization could take. She informs she will call patient and let her know and she will call nurse desk with any new information.
--- NOTE | 2025-07-31 16:02 | PM.IMHP2 ---
H&P: HPI History of Present Illness Date/Time: 07/31/25 16:02 [facility] Past Medical History Medical History Positive colorectal cancer screening using Cologuard test delivery delivered 1994 COPD (chronic obstructive pulmonary disease) Surgical History Surgical History History of ear surgery Age 7 Family History Family History Father , in 1999 Lung cancer Mother Lung cancer Social History Social History Smoking packs per day: 1 Smoking cigarettes per day: 20.0 Years smoked: 30 Smoking pack-years: 30.00 Smoking status: Current every day smoker Tobacco type: cigarettes Second hand tobacco smoke exposure: No Alcohol intake: never Substance use: never Substance use type: does not use Last use: 2002 Lack of Transportation: No Lack of Food: Never True Current Housing: I Have Housing Concerned About Future Housing: No Difficulty Paying Gas/Electric Bills: No Difficulty Paying for Meds: No Currently Unemployed: No Education: High School Diploma/GED Difficulty w/ Childcare or Family Care: No Living arrangements: with family Additional living arrangements comments: . 4 adult children. Spiritual care concerns: No Meds Home Medications and Allergies Home Medications ?Medication ?Instructions ?Recorded ?Confirmed ?Type albuterol sulfate 90 mcg/actuation See Rx Instructions .Route 05/07/25 07/30/25 Rx aerosol inhaler .COMPLEX #8.5 ea fluticasone fur. 200 mcg-umeclid See Rx Instructions .Route 05/07/25 07/30/25 Rx 62.5 mcg-vilant 25 mcg .COMPLEX #60 ea inhalat.powder (Trelegy Ellipta) ipratropium 0.5 mg-albuterol 3 mg 3 ml inhalation TID 30 days #270 mL 07/31/25 Rx (2.5 mg base)/3 mL nebulization soln levofloxacin 500 mg tablet 500 mg PO DAILY #3 tabs 07/31/25 Rx mirtazapine 15 mg tablet (Remeron) 7.5 mg (1/2 x 15 mg) PO HS #15 tabs 07/31/25 Rx prednisone 20 mg tablet 40 mg (2 x 20 mg) PO DAILY 4 days 07/31/25 Rx #8 tabs Allergies Allergy/AdvReac Type Severity Reaction Status Date / Time No Known Allergies Allergy Verified 06/22/25 08:41 Vital Signs Vital Signs - 24 hr 07/30/25 19:49 07/31/25 00:00 07/31/25 00:44 Temperature 97.6 F Pulse Rate 76 76 82 Respiratory Rate 18 18 22 H Blood Pressure 90/56 L Pulse Oximetry 93 93 92 Oxygen Delivery Nasal Cannula Nasal Cannula Oxygen Flow Rate 2 2 2 07/31/25 00:56 07/31/25 06:17 07/31/25 06:23 Temperature Pulse Rate 80 89 71 Respiratory Rate 18 12 12 Blood Pressure Pulse Oximetry 99 93 100 Oxygen Delivery Oxygen Flow Rate 2 2 2 07/31/25 08:00 07/31/25 09:50 07/31/25 09:55 Temperature 98.1 F Pulse Rate 78 69 82 Respiratory Rate 18 Blood Pressure 91/61 L Pulse Oximetry 92 90 88 L Oxygen Delivery Nasal Cannula Room Air Room Air Oxygen Flow Rate 2 07/31/25 10:08 07/31/25 10:09 07/31/25 12:16 Temperature Pulse Rate 69 68 76 Respiratory Rate 16 Blood Pressure Pulse Oximetry 88 L 90 95 Oxygen Delivery Nasal Cannula Oxygen Flow Rate 1 2 2 07/31/25 12:20 Temperature Pulse Rate 82 Respiratory Rate 16 Blood Pressure Pulse Oximetry 98 Oxygen Delivery Oxygen Flow Rate 2 Results Labs Labs: Short CBC 07/31/25 Range/Units 08:23 WBC 8.8 (4.8-10.8) K/mm3 Hgb 14.1 (12.0-15.0) g/dL Hct 43.0 (35.0-49.0) % Plt Count 219 (150-420) K/mm3 BMP 07/31/25 08:23 Sodium 140 Potassium 3.7 Chloride 106 Carbon Dioxide 25 BUN 7 D Creatinine 0.50 L Glucose 101 Calcium 8.8 Liver Function 07/31/25 Range/Units 08:23 Total Bilirubin 0.6 (0.2-1.3) mg/dL AST 24 (14-36) U/L ALT 15 (6-35) U/L Alkaline Phosphatase 62 (38-126) U/L Albumin 4.0 (3.5-5.1) g/dL
--- NOTE | 2025-07-31 17:19 | PC.NURSE ---
Today at 1615 [facility] brought portable tank for patient. This telegraphic typewriter installer asked [facility] patient accounting representative if education was given, She states, NO, I will be meeting them at their house for set up and will educate at that time. Education given per this facility staff.
--- NOTE | 2025-07-31 17:21 | PC.NURSE ---
Addendum entered by Lorna Trinidad RN 07/31/25 17:28: Time of discharge is 1630. 1430 written in error by this leader writer. Original Note: 1430 Patient discharge paperwork discussed. Patient has no question or concerns regarding medication, side effects or making a follow up appointment. IV discontinued, patient in not distress and escorted out of facility to family vehicle via WC with O2/2L/NC flowing. Patient refused continuation of O2 while in vehicle at this time.
--- NOTE | 2025-08-04 08:59 | PC.NURSE ---
Discharge call back completed, doing really well, sees dr marina next for follow up , no questions or concerns voiced
== END 2025-07-31 16:30 | disposition home or self-care (01) ==
LOC: CHSED 13:43 → CHS2ND 07-31 10:40
PROVIDERS: Nurse Practitioner Adult Health; Admitting Provider Internal Medicine; Emergency Provider Family Medicine; PCP Family Medicine; Visit Provider Internal Medicine
DX: J44.1 Chronic obstructive pulmonary disease with (acute) exacerbation (principal); A41.9 Sepsis, unspecified organism; R63.4 Abnormal weight loss; F41.8 Other specified anxiety disorders; F17.210 Nicotine dependence, cigarettes, uncomplicated; Z80.1 Family history of malignant neoplasm of trachea, bronchus and lung; Z20.822 Contact with and (suspected) exposure to COVID-19
CPT/HCPCS: 36415; 71045; 71250; 74150; 80053; 81001; 83605; 83880; 84484; 85025; 85610; 87040; 87637; 87651; 94618; 94640; 96365; 99285; A9270; G0378; J1956; J7030; J7512